=== PATIENT | female | born 1970 | race Caucasian/White ===

== ENCOUNTER 2017-05-25 13:04 | Emergency (ER) | payer MEDICAID, OTHER ==
--- NOTE | 2017-05-25 13:38 | EDM.PDOC ---
ED HPI GENERAL MEDICAL PROBLEM - General Chief Complaint: Respiratory Problem Stated Complaint: SICK X 4 DAYS Time Seen by Provider: 05/25/17 13:15 Source of Information: Reports: Patient, RN, RN Notes Reviewed History Limitations: Reports: No Limitations - History of Present Illness INITIAL COMMENTS - FREE TEXT/NARRATIVE: C/O 3 days duration of sore throat with subjective fevers, generalized body aches, and cough. Denies abd. pain, rash, or urinary Sx's. Admits to vomiting x2 on the first day of the illness, but no nausea today. Pt's co-worker was ill with similar Sx's last week. 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 Throat Pain Score (Numeric/FACES): 7 - Related Data Allergies Allergy/AdvReac Type Severity Reaction Status Date / Time No Known Allergies Allergy Verified 05/25/17 13:16 Home Meds: Home Meds Insulin Glarg,Human.Rec.Analog [Lantus Solostar] 30 units SQ BEDTIME 05/25/17 [ History] Lisinopril 5 mg PO DAILY 05/25/17 [History] Simvastatin 20 mg PO BEDTIME 05/25/17 [History] Past Medical History HEENT History: Reports: None Cardiovascular History: Reports: High Cholesterol, Hypertension Respiratory History: Reports: None Gastrointestinal History: Reports: None Genitourinary History: Reports: None 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 Musculoskeletal History: Reports: None Neurological History: Reports: None Psychiatric History: Reports: None Endocrine/Metabolic History: Reports: Diabetes, Type II, IDDM Hematologic History: Reports: None Immunologic History: Reports: None Oncologic (Cancer) History: Reports: None Dermatologic History: Reports: None - Infectious Disease History Infectious Disease History: Reports: Chicken Pox - Past Surgical History Head Surgeries/Procedures: Reports: None HEENT Surgical History: Reports: Adenoidectomy, Cataract Surgery, Tonsillectomy Female Surgical History: Reports: Section Social & Family History - Family History Family Medical History: Noncontributory - Tobacco Use Smoking Status *Q: Never Smoker Second Hand Smoke Exposure: No - Caffeine Use Caffeine Use: Reports: Coffee, Soda - Recreational Drug Use Recreational Drug Use: No - Living Situation & Occupation Living situation: Reports: with Family ED ROS GENERAL - Review of Systems Review Of Systems: ROS reveals no pertinent complaints other than HPI. ED EXAM, GENERAL - Physical Exam Exam: See Below Exam Limited By: No Limitations General Appearance: Alert, WD/WN, No Apparent Distress, Other (acutely ill but non-toxic appearing) Eye Exam: Bilateral Eye: Normal Inspection Ears: Normal External Exam, Normal Canal, Hearing Grossly Normal, Normal TMs Nose: No Blood, Nasal Drainage (clear) Throat/Mouth: Normal Inspection, Normal Lips, Normal Teeth, Normal Gums, Normal Oropharynx, Normal Voice, No Airway Compromise Head: Atraumatic, Normocephalic Neck: Normal Inspection, Supple, Non-Tender, Full Range of Motion. No: Lymphadenopathy (L), Lymphadenopathy (R) Respiratory/Chest: No Respiratory Distress, No Accessory Muscle Use, Decreased Breath Sounds, Other (occ. dry cough). No: Rales, Rhonchi, Wheezing Cardiovascular: Regular Rate, Rhythm, No Edema, Tachycardia GI/Abdominal: Normal Bowel Sounds, Soft, Non-Tender, No Distention. No: Guarding, Rigid, Rebound (Female) Exam: Deferred Rectal (Female) Exam: Deferred Back Exam: Normal Inspection, Full Range of Motion. No: CVA Tenderness (L), CVA Tenderness (R) Extremities: Normal Inspection, Normal Range of Motion, Non-Tender, Normal Capillary Refill, No Pedal Edema Neurological: Alert, Oriented, CN II-XII Intact, Normal Cognition, Normal Gait, No Motor/Sensory Deficits Psychiatric: Normal Mood Skin Exam: Warm, Dry, Intact, Normal Color, No Rash EKG INTERPRETATION EKG Date: 05/25/17 Time: 14:14 Rhythm: Other (sinus tach) Rate (Beats/Min): 104 [place]: Normal P-Wave: Present QRS: Normal ST-T: Normal QT: Normal Comparison: NA - No Prior EKG Course - Vital Signs Last Recorded V/S: Last Vital Signs Temp 37.7 C 05/25/17 15:10 Pulse 105 H 05/25/17 15:10 Resp 16 05/25/17 15:10 BP 160/88 H 05/25/17 15:10 Pulse Ox 100 05/25/17 15:10 - Orders/Labs/Meds Orders: Active Orders 24 hr Category Date Time Status EKG 12 Lead [EKG Documentation Completion] [RC] STAT Care 05/25/17 13:49 Active Peripheral IV Care [RC] . DIRECTED Care 05/25/17 13:49 Active Chest 2V [CR] Stat Exams 05/25/17 13:49 Taken CULTURE STREP A CONFIRMATION [] Stat Lab 05/25/17 13:25 Results STREP SCRN A RAPID W CULT CONF [] Stat Lab 05/25/17 13:25 Results Sodium Chloride 0.9% [Saline Flush] Med 05/25/17 13:48 Active 10 ml FLUSH ASDIRECTED PRN Peripheral IV Insertion Adult [OM.PC] Stat Oth 05/25/17 13:48 Ordered Medication Orders Sodium Chloride (Saline Flush) 10 ml FLUSH ASDIRECTED PRN PRN Reason: Keep Vein Open Last Admin: 05/25/17 14:09 Dose: 10 ml Labs: Laboratory Tests 05/25/17 05/25/17 05/25/17 Range/Units 14:09 14:09 15:00 WBC 5.3 (5.0-10.0) 10^3/uL RBC 4.51 (4.2-5.4) 10^6/uL Hgb 14.4 (12.0-16.0) g/dL Hct 41.4 (37.0-47.0) % MCV 91.8 (80-100) fL MCH 31.9 (27.0-34.0) pg MCHC 34.8 (33.0-35.0) g/dL Plt Count 155 (150-450) 10^3/uL Neut % (Auto) 71.9 (42.2-75.2) % Lymph % (Auto) 16.1 L (20.5-50.1) % [place] % (Auto) 11.4 H (2-8) % Eos % (Auto) 0.2 L (1.0-3.0) % Baso % (Auto) 0.4 (0.0-1.0) % ABG pH 7.42 (7.35-7.45) ABG pCO2 24 L (35-45) mmHg ABG pO2 73 (70-100) mmHg ABG HCO3 15.6 L (22-26) mmol/L ABG O2 Saturation 97 (95-100) % ABG Base Excess -7 L ((-2)-(+3)) mmol/L Lee Test rb O2 Delivery Device Room air Sodium 132 L (135-145) mmol/L Potassium 4.1 (3.6-5.0) mmol/L Chloride 102 (101-111) mmol/L Carbon Dioxide 20.0 L (21.0-31.0) mmol/L Anion Gap 14.1 BUN 19 H (7-18) mg/dL Creatinine 0.8 (0.6-1.3) mg/dL Est Cr Clr Drug Dosing 75.88 mL/min Estimated GFR (MDRD) > 60 BUN/Creatinine Ratio 23.75 Glucose 268 H (74-105) mg/dL Calcium 8.9 (8.4-10.2) mg/dl Total Bilirubin 0.7 (0.2-1.0) mg/dL AST 20 (10-42) IU/L ALT 15 (10-60) IU/L Alkaline Phosphatase 66 (42-121) IU/L Total Protein 6.9 (6.7-8.2) g/dl Albumin 3.8 (3.2-5.5) g/dl Globulin 3.1 Albumin/Globulin Ratio 1.23 Ketones Positive Rapid Strep: negative Influenza A: negative Influenza B: POSITIVE Meds: Medications Generic Name Dose Route Start Last Admin Trade Name Freq PRN Reason Stop Dose Admin Sodium Chloride 10 ml 05/25/17 13:48 05/25/17 14:09 Saline Flush FLUSH 10 ml ASDIRECTED PRN Administration Keep Vein Open Discontinued Medications Generic Name Dose Route Start Last Admin Trade Name Freq PRN Reason Stop Dose Admin Sodium Chloride 1,000 mls @ 999 mls/hr 05/25/17 13:50 05/25/17 14:09 Normal Saline IV 05/25/17 14:50 999 mls/hr .BOLUS ONE Administration - Radiology Interpretation Free Text/Narrative:: CXR: no acute process, see Rad. report. Departure - Departure Time of Disposition: 15:28 Disposition: Home, Self-Care 01 Condition: Fair Clinical Impression: Influenza B, Diabetic ketosis - Discharge Information Instructions: Influenza, Adult, Diabetes Mellitus and Sick Day Management Forms: ED Department Discharge Additional Instructions: Drink plenty of water. Monitor your blood sugar closely. Use over the counter Tylenol or Ibuprofen as needed for fevers. Follow directions on bottle for dosing and precautions. Follow up in clinic with your primary doctor tomorrow or May 29 for recheck. Return to ER if worse at any time, or if any new symptoms develop. - My Orders Last 24 Hours: My Active Orders 05/25/17 13:25 CULTURE STREP A CONFIRMATION [RM] Stat STREP SCRN A RAPID W CULT CONF [RM] Stat 05/25/17 13:48 Sodium Chloride 0.9% [Saline Flush] 10 ml FLUSH ASDIRECTED PRN Peripheral IV Insertion Adult [OM.PC] Stat 05/25/17 13:49 EKG 12 Lead [EKG Documentation Completion] [RC] STAT Peripheral IV Care [RC] . DIRECTED Chest 2V [CR] Stat - Assessment/Plan Last 24 Hours: My Active Orders 05/25/17 13:25 CULTURE STREP A CONFIRMATION [RM] Stat STREP SCRN A RAPID W CULT CONF [RM] Stat 05/25/17 13:48 Sodium Chloride 0.9% [Saline Flush] 10 ml FLUSH ASDIRECTED PRN Peripheral IV Insertion Adult [OM.PC] Stat 05/25/17 13:49 EKG 12 Lead [EKG Documentation Completion] [RC] STAT Peripheral IV Care [RC] . DIRECTED Chest 2V [CR] Stat
[2017-05-25] MEDS ORDERED: Sodium Chloride 0.9% 10 ML Syringe FLUSH PRN (13:48)
[2017-05-25] MEDS ORDERED: Sodium Chloride 0.9% 1,000 ML IV ONE (13:50)
[2017-05-25 14:36] LABS: CHLORIDE,CL 102 mmol/L (101-111); SODIUM,NA 132 mmol/L (135-145)
[2017-05-25 15:13] LABS: BASE EXCESS ARTERIAL -7 mmol/L ((-2)-(+3)); BICARBONATE,ARTERIAL 15.6 mmol/L (22-26); O2 DELIVERY DEVICE ROOM AIR; O2 SATURATION ARTERIAL 97 % (95-100); PCO2 ARTERIAL 24 mmHg (35-45); PO2 ARTERIAL 73 mmHg (70-100)
[2017-05-25 15:15] LABS: ALLEN TEST rb
--- NOTE | 2017-05-25 15:29 | CR ---
CLINICAL HISTORY: 47-year-old female with fever and cough. INTERPRETATION: Coarse accentuation central lung markings, mild peribronchial "cuffing" and generaliz ed air trapping consistent with bronchial inflammation/bronchospasm. Clinical bronchitis? No focal lobar pneumonia and no sign of atelectasis/collapse. No pneumothorax. Normal cardiac silhouette without cephalization of flow, signs of alveolar edema or dependent pleural effusion. No lung mass or hilar lymphadenopathy. CONCLUSION: Bronchial inflammation. No lobar pneumonia.
--- NOTE | 2017-05-29 09:30 | EKG ---
05/25/2017 - [place]LIN[facility] - EKG is sinus rhythm with a rate of 132, normal IL interval, normal axis. EKG is within normal limits. [facility] /[id number]
== END 2017-05-25 15:46 | disposition home or self-care (01) ==
LOC: DL.ED 13:04
DX: J10.1 Influenza due to other identified influenza virus with other respiratory manifestations (principal); E11.10 Type 2 diabetes mellitus with ketoacidosis without coma; I10 Essential (primary) hypertension; Z79.4 Long term (current) use of insulin; Z79.899 Other long term (current) drug therapy
CPT/HCPCS: 36415; 36600; 71046; 80053; 82009; 82803; 85025; 87081; 87430; 87804; 93005; 96360; 99284; J7030; J7050

== ENCOUNTER 2020-06-06 14:21 | Emergency (ER) | payer MEDICAID ==
[2020-06-06] MEDS ORDERED: Meclizine 12.5 MG Tab PO ONE (14:22)
[2020-06-06] MEDS ORDERED: Lactated Ringers 1,000 ML IV ONE (16:14)
[2020-06-06 17:28] LABS: ANION GAP 10.9 mEq/L (7-13); CHLORIDE,CL 102 mmol/L (98-107); SODIUM,NA 139 mmol/L (136-145)
[2020-06-06] MEDS ORDERED: Magnesium Sulfate/Water 2 GM/50 ML BAG IV ONE (17:52)
--- NOTE | 2020-06-06 18:40 | CT ---
PROCEDURE INFORMATION: Exam: CT Head Without Contrast Exam date and time: 06/06/2020 6:13 PM Age: 50 years old Clinical indication: Dizziness TECHNIQUE: Imaging protocol: Computed tomography of the head without contrast. Total images: 148 Radiation optimization: All CT scans at this facility use at least one of these dose optimization techniques: automated exposure control; mA and/or kV adjustment per patient size (includes targeted exams where dose is matched to clinical indication); or iterative reconstruction. COMPARISON: No relevant prior studies available. FINDINGS: Brain: Normal. No hemorrhage. Unremarkable white matter. No mass effect. Cerebral ventricles: No ventriculomegaly. Bones/joints: Unremarkable. No acute fracture. Paranasal sinuses: Visualized sinuses are unremarkable. No fluid levels. Mastoid air cells: Visualized mastoid air cells are well aerated. Soft tissues: Unremarkable. IMPRESSION: No acute intracranial abnormality.
--- NOTE | 2020-06-06 18:49 | EDM.PDOC ---
Scribed by Louisa Lowe 06/06/20 [id number] for Raissa Nguyen NP ED HPI GENERAL MEDICAL PROBLEM - General Chief Complaint: General Stated Complaint: DIZZY Time Seen by Provider: 06/06/20 16:05 Source of Information: Reports: Patient, RN, RN Notes Reviewed History Limitations: Reports: No Limitations - History of Present Illness INITIAL COMMENTS - FREE TEXT/NARRATIVE: Patient is a 50-year-old female who presents to ER with complaint of dizziness since Monday. Patient states it feels as though the room is spinning. Patient she has taken Lisinopril x5 years. She had COVID in December 2019. She has had no vaccinations. She is post-menopausal 5 years, unknown LMP. She has had chills and diarrhea that began last night. No fever, nausea, vomiting, chest pain or sh ortness of breath. Onset: Gradual Duration: Constant Location: Reports: Head Quality: Reports: Other (dizziness) Severity: Moderate Improves with: Reports: None Worsens with: Reports: None Associated Symptoms: Reports: No Other Symptoms - Related Data Allergies Allergy/AdvReac Type Severity Reaction Status Date / Time No Known Allergies Allergy Verified 06/06/20 15:11 Home Meds: Home Meds Insulin Glarg,Human.Rec.Analog [Lantus Solostar] 30 units SQ BEDTIME 05/25/17 [History] Lisinopril 5 mg PO DAILY 05/25/17 [History] Simvastatin 20 mg PO BEDTIME 05/25/17 [History] Alendronate Sodium [Fosamax] 70 mg PO .WEEKLY 03/31/20 [History] Insulin Lispro [Humalog] 10 units SQ TID 03/31/20 [History] metFORMIN HCl [Metformin HCl] 500 mg PO BID 03/31/20 [History] Calcium Carbonate [Calcium] 600 mg PO BID 04/17/20 [History] Cholecalciferol (Vitamin D3) [Vitamin D3] 2,000 unit PO DAILY 04/17/20 [History] Past Medical History HEENT History: Reports: None Cardiovascular History: Reports: High Cholesterol, Hypertension Respiratory History: Reports: None Gastrointestinal History: Reports: None Genitourinary History: Reports: None 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 Musculoskeletal History: Reports: None Neurological History: Reports: None Psychiatric History: Reports: None Endocrine/Metabolic History: Reports: Diabetes, Type II, IDDM Hematologic History: Reports: None Immunologic History: Reports: None Oncologic (Cancer) History: Reports: None Dermatologic History: Reports: None - Infectious Disease History Infectious Disease History: Reports: Chicken Pox - Past Surgical History Head Surgeries/Procedures: Reports: None HEENT Surgical History: Reports: Adenoidectomy, Cataract Surgery, Tonsillectomy Female Surgical History: Reports: Section Social & Family History - Family History Family Medical History: No Pertinent Family History - Tobacco Use Tobacco Use Status *Q: Never Tobacco User - Caffeine Use Caffeine Use: Reports: Coffee, Soda - Recreational Drug Use Recreational Drug Use: No - Living Situation & Occupation Living situation: Reports: with Family ED ROS GENERAL - Review of Systems Review Of Systems: Comprehensive ROS is negative, except as noted in HPI. ED EXAM, GENERAL - Physical Exam Exam: See Below Exam Limited By: No Limitations General Appearance: Alert, WD/WN, No Apparent Distress Eye Exam: Bilateral Eye: EOMI, Normal Inspection, PERRL Ears: Normal External Exam, Normal Canal, Hearing Grossly Normal, Normal TMs Nose: Normal Inspection, Normal Mucosa, No Blood Throat/Mouth: Normal Inspection, Normal Lips, Normal Teeth, Normal Gums, Normal Oropharynx, Normal Voice, No Airway Compromise Head: Atraumatic, Normocephalic Neck: Normal Inspection, Supple, Non-Tender, Full Range of Motion Respiratory/Chest: No Respiratory Distress, Lungs Clear, Normal Breath Sounds, No Accessory Muscle Use, Chest Non-Tender Cardiovascular: Normal Peripheral Pulses, Regular Rate, Rhythm, No Edema, No Gallop, No JVD, No Murmur, No Rub GI/Abdominal: Normal Bowel Sounds, Soft, Non-Tender, No Organomegaly, No Distention, No Abnormal Bruit, No Mass (Female) Exam: Deferred Rectal (Female) Exam: Deferred Back Exam: Normal Inspection, Full Range of Motion, NT Extremities: Normal Inspection, Normal Range of Motion, Non-Tender, Normal Capillary Refill, No Pedal Edema Neurological: Alert, Oriented, CN II-XII Intact, Normal Cognition, Normal Gait, Normal Reflexes, No Motor/Sensory Deficits Psychiatric: Normal Affect, Normal Mood Skin Exam: Warm, Dry, Intact, Normal Color, No Rash Lymphatic: No Adenopathy #1 Interpretation EKG Date: 06/06/20 Time: 16:35 Rhythm: Other (sinus rhythm) Rate (Beats/Min): 87 [place]: Normal P-Wave: Present QRS: Normal ST-T: Normal QT: Normal Course - Vital Signs Last Recorded V/S: Last Vital Signs Temp 97.4 F 06/06/20 18:03 Pulse 88 06/06/20 18:03 Resp 16 06/06/20 18:03 BP 114/73 06/06/20 18:03 Pulse Ox 98 06/06/20 18:03 - Orders/Labs/Meds Labs: Laboratory Tests 06/06/20 06/06/20 06/06/20 Range/Units 16:30 16:45 16:45 WBC 8.4 (5.0-10.0) 10^3/uL RBC 4.29 (4.2-5.4) 10^6/uL Hgb 13.7 (12.0-16.0) g/dL Hct 41.2 (37.0-47.0) % MCV 96.0 D (80-100) fL MCH 31.9 (27.0-34.0) pg MCHC 33.3 (33.0-35.0) g/dL Plt Count 220 (150-450) 10^3/uL Neut % (Auto) 65.9 (42.2-75.2) % Lymph % (Auto) 24.5 (20.5-50.1) % [place] % (Auto) 8.4 H (2-8) % Eos % (Auto) 0.7 L (1.0-3.0) % Baso % (Auto) 0.5 (0.0-1.0) % Sodium 139 (136-145) mmol/L Potassium 3.9 (3.5-5.1) mmol/L Chloride 102 (98-107) mmol/L Carbon Dioxide 30 (21-32) mmol/L Anion Gap 10.9 (7-13) mEq/L BUN 26 H (7-18) mg/dL Creatinine 0.94 (0.55-1.02) mg/dL Est Cr Clr Drug Dosing 62.51 mL/min Estimated GFR (MDRD) > 60 BUN/Creatinine Ratio 27.7 (No establ ref range) Glucose 238 H (70-99) mg/dL POC Glucose (70-99) mg/dL Calcium 9.9 (8.5-10.1) mg/dL Magnesium 1.6 L (1.8-2.4) mg/dL Total Bilirubin 0.3 (0.2-1.0) mg/dL AST 17 (15-37) U/L ALT 27 (14-59) U/L Alkaline Phosphatase 71 (46-116) U/L Troponin I < 0.017 (0.000-0.056) ng/mL Total Protein 7.0 (6.4-8.2) g/dL Albumin 3.5 (3.4-5.0) g/dL Globulin 3.5 Albumin/Globulin Ratio 1.0 Urine Color Yellow (YELLOW) Urine Appearance Slightly cloudy (CLEAR) Urine pH 6.0 (5.0-9.0) Ur Specific Reading >= 1.030 (1.005-1.030) Urine Protein Negative (NEGATIVE) Urine Glucose (UA) 100 H (NEGATIVE) Urine Ketones Negative (NEGATIVE) Urine Occult Blood Trace-intact H (NEGATIVE) Urine Nitrite Negative (NEGATIVE) Urine Bilirubin Negative (NEGATIVE) Urine Urobilinogen 0.2 (0.2-1.0) mg/dL Ur Leukocyte Esterase Negative (NEGATIVE) Urine RBC 0-5 /HPF Urine WBC 0-5 (0-5/HPF) /HPF Ur Epithelial Cells Few (NOT SEEN) /HPF Urine Bacteria Few (0-FEW/HPF) /HPF 06/06/20 Range/Units 18:45 WBC (5.0-10.0) 10^3/uL RBC (4.2-5.4) 10^6/uL Hgb (12.0-16.0) g/dL Hct (37.0-47.0) % MCV (80-100) fL MCH (27.0-34.0) pg MCHC (33.0-35.0) g/dL Plt Count (150-450) 10^3/uL Neut % (Auto) (42.2-75.2) % Lymph % (Auto) (20.5-50.1) % [place] % (Auto) (2-8) % Eos % (Auto) (1.0-3.0) % Baso % (Auto) (0.0-1.0) % Sodium (136-145) mmol/L Potassium (3.5-5.1) mmol/L Chloride (98-107) mmol/L Carbon Dioxide (21-32) mmol/L Anion Gap (7-13) mEq/L BUN (7-18) mg/dL Creatinine (0.55-1.02) mg/dL Est Cr Clr Drug Dosing mL/min Estimated GFR (MDRD) BUN/Creatinine Ratio (No establ ref range) Glucose (70-99) mg/dL POC Glucose 146 H (70-99) mg/dL Calcium (8.5-10.1) mg/dL Magnesium (1.8-2.4) mg/dL Total Bilirubin (0.2-1.0) mg/dL AST (15-37) U/L ALT (14-59) U/L Alkaline Phosphatase (46-116) U/L Troponin I (0.000-0.056) ng/mL Total Protein (6.4-8.2) g/dL Albumin (3.4-5.0) g/dL Globulin Albumin/Globulin Ratio Urine Color (YELLOW) Urine Appearance (CLEAR) Urine pH (5.0-9.0) Ur Specific Reading (1.005-1.030) Urine Protein (NEGATIVE) Urine Glucose (UA) (NEGATIVE) Urine Ketones (NEGATIVE) Urine Occult Blood (NEGATIVE) Urine Nitrite (NEGATIVE) Urine Bilirubin (NEGATIVE) Urine Urobilinogen (0.2-1.0) mg/dL Ur Leukocyte Esterase (NEGATIVE) Urine RBC /HPF Urine WBC (0-5/HPF) /HPF Ur Epithelial Cells (NOT SEEN) /HPF Urine Bacteria (0-FEW/HPF) /HPF Meds: Medications Discontinued Medications Generic Name Dose Route Start Last Admin Trade Name Antonio PRN Reason Stop Dose Admin Lactated Ringer's 1,000 mls @ 999 mls/hr 06/06/20 16:14 06/06/20 16:39 Ringers, Lactated IV 06/06/20 17:14 999 mls/hr .BOLUS ONE Administration Magnesium Sulfate 2 gm in 50 mls @ 25 mls/hr 06/06/20 17:52 06/06/20 18:00 Magnesium Sulfate In Water 2 Gm/50 Ml IV 06/06/20 19:51 25 mls/hr ONETIME ONE Administration Meclizine HCl Confirm 06/06/20 19:15 Meclizine 12.5 Mg Tab Administered 06/06/20 19:16 Dose 25 mg .ROUTE .STK-MED ONE Meclizine HCl Confirm 06/06/20 19:16 Meclizine 12.5 Mg Tab Administered 06/06/20 19:17 Dose 25 mg .ROUTE .STK-MED ONE - Radiology Interpretation Free Text/Narrative:: Head CT wo contrast: PROCEDURE INFORMATION: Exam: CT Head Without Contrast Exam date and time: 06/06/2020 6:13 PM Age: 50 years old Clinical indication: Dizziness TECHNIQUE: Imaging protocol: Computed tomography of the head without contrast. Total images: 148 Radiation optimization: All CT scans at this facility use at least one of these dose optimization techniques: automated exposure control; mA and/or kV adjustment per patient size (includes targeted exams where dose is matched to clinical indication); or iterative reconstruction. COMPARISON: No relevant prior studies available. FINDINGS: Brain: Normal. No hemorrhage. Unremarkable white matter. No mass effect. Cerebral ventricles: No ventriculomegaly. Bones/joints: Unremarkable. No acute fracture. Paranasal sinuses: Visualized sinuses are unremarkable. No fluid levels. Mastoid air cells: Visualized mastoid air cells are well aerated. Soft tissues: Unremarkable. IMPRESSION: No acute intracranial abnormality. Thank you for allowing us to participate in the care of your patient. Dictated and Authenticated by: German Kulkarni MD 06/06/2020 6:40 PM Central Time ([place] & [place]) See rad report Departure - Departure Time of Disposition: 20:20 Disposition: Home, Self-Care 01 Condition: Fair Clinical Impression: Dizziness - Discharge Information *PRESCRIPTION DRUG MONITORING PROGRAM REVIEWED*: No *COPY OF PRESCRIPTION DRUG MONITORING REPORT IN PATIENT ZAFAR: No Instructions: Dizziness, [id number] Referrals: PCP,None [Primary Care Provider] - Forms: ED Department Discharge Additional Instructions: Follow-up with your primary care provider next week Follow-up with physical therapy for evaluation of vertigo and Delia maneuvers Rx: Meclizine 25 mg May use 4 times daily as needed for dizziness Drink plenty of fluids Sepsis Event Note (ED) - Evaluation Sepsis Screening Result: No Definite Risk I have read and agree with the documentation that has been completed regarding this visit. By signing this record, I attest that the documentation was completed in my physical presence and is an accurate record of the encounter.
[2020-06-06] MEDS ORDERED: Meclizine 12.5 MG Tab ONE ×2 (19:15→19:16)
== END 2020-06-06 20:20 | disposition home or self-care (01) ==
LOC: DL.ED 14:21
DX: R42 Dizziness and giddiness (principal); E78.00 Pure hypercholesterolemia, unspecified; I10 Essential (primary) hypertension; E11.9 Type 2 diabetes mellitus without complications; Z79.4 Long term (current) use of insulin; Z79.899 Other long term (current) drug therapy
CPT/HCPCS: 36415; 70450; 80053; 81001; 82947; 83735; 84484; 85025; 93005; 96365; 96366; 99284; J3475; J7120; 93010; A9270-GY

== ENCOUNTER 2020-08-18 13:04 | Emergency (ER) | payer MEDICAID ==
[2020-08-18] MEDS ORDERED: Ondansetron 4 MG/2 ML SDV IVPUSH ONE (14:14)
[2020-08-18] MEDS ORDERED: Sodium Chloride 0.9% 1,000 ML IV ONE (14:14)
--- NOTE | 2020-08-18 14:19 | EDM.PDOC ---
ED HPI GENERAL MEDICAL PROBLEM - General Chief Complaint: Gastrointestinal Problem Stated Complaint: STOMACH ACHE, VOMITING TWO DAYS Time Seen by Provider: 08/18/20 14:00 Source of Information: Reports: Patient, RN, RN Notes Reviewed History Limitations: Reports: No Limitations - History of Present Illness INITIAL COMMENTS - FREE TEXT/NARRATIVE: Lauren is a 50 y/o female who presents to the ED via personal vehicle with complaints of nausea, vomiting, and abdominal pain. The patient reports her symptoms began yesterday morning and have maintained in that time. She has experienced multiple bouts of emesis; her last occurrence of vomiting was about one hour prior to her arrival at the facility. She denies fever, shaking chills, shortness of breath, dyspepsia, diarrhea, or constipation. Her last bowel movement was last night and was hard, formed. Her last meal was two evenings ago. The patient denies recreational drug use but attest to alcohol use and smoking a vape pen; her last drink of alcohol was two day ago over the holiday weekend. Lower Abdominal Pain Score (Numeric/FACES): 6 - Related Data Allergies Allergy/AdvReac Type Severity Reaction Status Date / Time No Known Allergies Allergy Verified 08/18/20 13:30 Home Meds: Home Meds Insulin Glarg,Human.Rec.Analog [Lantus Solostar] 30 units SQ BEDTIME 05/25/17 [History] Lisinopril 5 mg PO DAILY 05/25/17 [History] Simvastatin 20 mg PO BEDTIME 05/25/17 [History] Alendronate Sodium [Fosamax] 70 mg PO .WEEKLY 03/31/20 [History] Insulin Lispro [Humalog] 10 units SQ TID 03/31/20 [History] metFORMIN HCl [Metformin HCl] 500 mg PO BID 03/31/20 [History] Calcium Carbonate [Calcium] 600 mg PO BID 04/17/20 [History] Cholecalciferol (Vitamin D3) [Vitamin D3] 2,000 unit PO DAILY 04/17/20 [History] Past Medical History HEENT History: Reports: None Cardiovascular History: Reports: High Cholesterol, Hypertension Respiratory History: Reports: None Gastrointestinal History: Reports: None Genitourinary History: Reports: None HR RECEPTIONIST History: Reports: None Musculoskeletal History: Reports: None Neurological History: Reports: None Psychiatric History: Reports: None Endocrine/Metabolic History: Reports: Diabetes, Type II, IDDM Hematologic History: Reports: None Immunologic History: Reports: None Oncologic (Cancer) History: Reports: None Dermatologic History: Reports: None - Infectious Disease History Infectious Disease History: Reports: Chicken Pox - Past Surgical History Head Surgeries/Procedures: Reports: None HEENT Surgical History: Reports: Adenoidectomy, Cataract Surgery, Tonsillectomy Cardiovascular Surgical History: Reports: None Respiratory Surgical History: Reports: None GI Surgical History: Reports: None Female Surgical History: Reports: Section Endocrine Surgical History: Reports: None Neurological Surgical History: Reports: None Musculoskeletal Surgical History: Reports: None Oncologic Surgical History: Reports: None Dermatological Surgical History: Reports: Other (See Below) Social & Family History - Family History Family Medical History: No Pertinent Family History - Tobacco Use Tobacco Use Status *Q: Current Every Day Tobacco User Years of Tobacco use: 20 Packs/Tins Daily: 0.2 - Caffeine Use Caffeine Use: Reports: Coffee, Soda Other Caffeine Use: 3-4 TIMES A WEEK - Recreational Drug Use Recreational Drug Use: No - Living Situation & Occupation Living situation: Reports: with Family ED ROS GENERAL - Review of Systems Review Of Systems: Comprehensive ROS is negative, except as noted in HPI. ED EXAM, GI/ABD - Physical Exam Exam: See Below Exam Limited By: No Limitations General Appearance: Alert, No Apparent Distress, Other (Ill-appearing) Eyes: Bilateral: Normal Appearance, EOMI Ears: Normal External Exam, Hearing Grossly Normal Nose: Normal Inspection, Normal Mucosa, No Blood Throat/Mouth: Normal Voice, No Airway Compromise. No: Normal Oropharynx (Dry mucous membranes) Head: Atraumatic, Normocephalic Neck: Normal Inspection, Supple, Non-Tender, Full Range of Motion Respiratory/Chest: No Respiratory Distress, Lungs Clear, Normal Breath Sounds, No Accessory Muscle Use, Chest Non-Tender Cardiovascular: Normal Peripheral Pulses, Regular Rate, Rhythm, No Gallop, No JVD, No Murmur, No Rub. No: No Edema GI/Abdominal Exam: Soft, No Distention, No Abnormal Bruit, No Mass, Pelvis Stable, Tender (To palpation of bilateral lower quadrants and left upper quadrant), Abnormal Bowel Sounds (Hypoactive bowel sounds) (Female) Exam: Deferred Rectal (Female) Exam: Deferred Back Exam: Normal Inspection, Full Range of Motion. No: CVA Tenderness (L), CVA Tenderness (R) Extremities: Normal Inspection, Normal Range of Motion, Non-Tender, Normal Capillary Refill, Pedal Edema (Trace, pitting bilaterally) Neurological: Alert, Oriented, CN II-XII Intact, Normal Cognition, Normal Gait, Normal Reflexes, No Motor/Sensory Deficits Psychiatric: Normal Affect, Normal Mood Skin Exam: Warm, Dry, Intact, Normal Color, No Rash. No: Cyanosis, Ecchymosis, Erythema, Jaundice, Mottled, Pallor Course - Vital Signs Last Recorded V/S: Last Vital Signs Temp 97.7 F 08/18/20 13:30 Pulse 101 H 08/18/20 13:30 Resp 18 08/18/20 13:30 BP 126/84 08/18/20 13:30 Pulse Ox 99 08/18/20 13:30 - Orders/Labs/Meds Orders: Active Orders 24 hr Category Date Time Status UA RFX OSCAR AND CULT IF INDIC [URIN] Stat Lab 08/18/20 14:13 Ordered Labs: Laboratory Tests 08/18/20 08/18/20 08/18/20 Range/Units 14:21 14:21 14:21 WBC 17.5 H (5.0-10.0) 10^3/uL RBC 4.28 (4.2-5.4) 10^6/uL Hgb 13.9 (12.0-16.0) g/dL Hct 41.5 (37.0-47.0) % MCV 97.0 (80-100) fL MCH 32.5 (27.0-34.0) pg MCHC 33.5 (33.0-35.0) g/dL Plt Count 199 (150-450) 10^3/uL Neut % (Auto) 86.2 H (42.2-75.2) % Lymph % (Auto) 7.4 L (20.5-50.1) % Campbell % (Auto) 6.0 (2-8) % Eos % (Auto) 0.2 L (1.0-3.0) % Baso % (Auto) 0.2 (0.0-1.0) % Sodium 136 (136-145) mmol/L Potassium 4.6 (3.5-5.1) mmol/L Chloride 100 (98-107) mmol/L Carbon Dioxide 25 (21-32) mmol/L Anion Gap 15.6 H (7-13) mEq/L BUN 28 H (7-18) mg/dL Creatinine 0.98 (0.55-1.02) mg/dL Est Cr Clr Drug Dosing 59.96 mL/min Estimated GFR (MDRD) > 60 BUN/Creatinine Ratio 28.6 (No establ ref range) Glucose 233 H (70-99) mg/dL Lactic Acid 1.9 (0.4-2.0) mmol/L Calcium 9.0 (8.5-10.1) mg/dL Total Bilirubin 0.7 (0.2-1.0) mg/dL AST 11 L (15-37) U/L ALT 17 (14-59) U/L Alkaline Phosphatase 82 (46-116) U/L Total Protein 7.3 (6.4-8.2) g/dL Albumin 3.4 (3.4-5.0) g/dL Globulin 3.9 Albumin/Globulin Ratio 0.9 HCG, Qual Negative Meds: Medications Discontinued Medications Generic Name Dose Route Start Last Admin Trade Name Freq PRN Reason Stop Dose Admin Sodium Chloride 1,000 mls @ 999 mls/hr 08/18/20 14:14 08/18/20 14:36 Normal Saline IV 08/18/20 15:14 999 mls/hr .BOLUS ONE Administration Ciprofloxacin/Dextrose 400 mg/ 200 mls @ 200 mls/hr 08/18/20 16:07 08/18/20 16:40 Premix IV 08/18/20 17:06 200 mls/hr ONETIME ONE Administration Metronidazole 500 mg/ Premix 100 mls @ 100 mls/hr 08/18/20 16:07 08/18/20 16:30 IV 08/18/20 17:06 100 mls/hr ONETIME ONE Administration Iopamidol 100 ml 08/18/20 15:13 Iopamidol 612 Mg/Ml 100 Ml Bottle IVPUSH 08/18/20 15:14 ONETIME ONE Ondansetron HCl 4 mg 08/18/20 14:14 08/18/20 14:36 Ondansetron 4 Mg/2 Ml Sdv IVPUSH 08/18/20 14:15 4 mg ONETIME ONE Administration - Re-Assessments/Exams Free Text/Narrative Re-Assessment/Exam: 08/18/20 NS 1L bolus and Zofran 4mg IVP administered while labs pending. Will obtain CT abdomen/pelvis, creatinine pending. Findings of examination, lab work, and imaging reviewed with patient. Will treat diverticulitis with Ciprofloxacin and Metronidazole. Discussed supportive cares for abdominal pain associated with diverticulitis. Red flag signs and symptoms which would warrant reevaluation reviewed. Patient verbalized understanding and agreement with the plan of care. Departure - Departure Time of Disposition: 17:52 Disposition: Home, Self-Care 01 Condition: Fair Clinical Impression: Diverticulitis Hyperglycemia due to type 2 diabetes mellitus Qualifiers: Diabetes mellitus mold washer insulin use: without halfway use Qualified Code(s): E11.65 - Type 2 diabetes mellitus with hyperglycemia - Discharge Information *PRESCRIPTION DRUG MONITORING PROGRAM REVIEWED*: Not Applicable *COPY OF PRESCRIPTION DRUG MONITORING REPORT IN PATIENT ZAFAR: Not Applicable Instructions: Diverticulitis, [id number] Forms: ED Department Discharge Additional Instructions: Rx: ciprofloxacin Rx: metronidazole 1.) Take all of your antibiotics until they are gone. 2.) Drink plenty of water to stay hydrated. 3.) Eat a bland diet while you continue to experience abdominal pain. Avoid spicy, greasy, high-fat foods. 4.) Monitor your blood sugar closely. 5.) Follow up with your primary care provider, or return to the emergency department, with fever, shaking chills, or persistent/worsening symptoms despite 48 hours of antibiotics. Sepsis Event Note (ED) - Evaluation Sepsis Screening Result: No Definite Risk - Focused Exam Vital Signs: Vital Signs Temp Pulse Resp BP Pulse Ox 08/18/20 13:30 97.7 F 101 H 18 126/84 99 - My Orders Last 24 Hours: My Active Orders 08/18/20 14:13 UA RFX OSCAR AND CULT IF INDIC [URIN] Stat - Assessment/Plan Last 24 Hours: My Active Orders 08/18/20 14:13 UA RFX OSCAR AND CULT IF INDIC [URIN] Stat
[2020-08-18 14:47] LABS: ANION GAP 15.6 mEq/L (7-13); CHLORIDE,CL 100 mmol/L (98-107); SODIUM,NA 136 mmol/L (136-145)
[2020-08-18] MEDS ORDERED: Iopamidol 612 MG/ML 100 ML Bottle IVPUSH ONE (15:13)
[2020-08-18] MEDS ORDERED: metroNIDAZOLE/Normal Saline 500 MG in Premix Bag 100 BAG IV ONE (16:07)
[2020-08-18] MEDS ORDERED: Ciprofloxacin in D5W 400 MG in Premix Bag 1 BAG IV ONE ×2 (16:07)
--- NOTE | 2020-08-18 16:37 | CT ---
EXAMINATION: Abdomen Pelvis w Cont SEX: Female AGE: 50 years CLINICAL HISTORY: 50-year-old diabetic female complaining of lower abdomen pain (L>R); WBC 17,000. HISTORY: Polyps removed end of June 2020. Scan technique: Volume acquisition of data abdomen and pelvis obtained without oral contrast but during the intravenous infusion 75 cc nonionic Isovue contrast 3 cc/s via injector while patient was lying supine on the Siemens multislice scanner [place], [place]. All data archived in the PACS system for storage, reformatting axial/sagittal/coronal planes and study. Interpretation: Abnormal. 1. Several small diverticula sigmoid colon with surrounding inflammatory "dirty" peritoneal fat suggesting perforation i.e. DIVERTICULITIS. 2. Solitary tiny parenchymal cyst right lobe of the liver. Gallbladder, liver, stomach, spleen, pancreas and adrenal glands otherwise unremarkable i.e. negative. 3. Oval metallic density foreign body right lower quadrant (cecum). 4. Solitary round calcification lower pole right kidney. No sign of other renal calculi, renal cortical mass or obstruction. 5. 3 cm diameter cystic structure right adnexa which may represent ovarian cyst however bladder diverticulum or sigmoid colon filled with fluid in the differential (small nodule and suggest considering pelvic ultrasound as elective procedure). 6. No other pelvic or abdominal mass lesion. No sign of mechanical bowel obstruction, ascites or free intraperitoneal air. 7. Lung bases clear. Normal cardiac silhouette. No pericardial or pleural effusions. CONCLUSION: DIVERTICULITIS LLQ abdomen. Nephrolithiasis right kidney (without obstruction). Foreign body RLQ. Pelvic ultrasound suggested after acute management diverticulitis (see above).
== END 2020-08-18 17:55 | disposition home or self-care (01) ==
LOC: DL.ED 13:04
DX: K57.32 Diverticulitis of large intestine without perforation or abscess without bleeding (principal); E11.65 Type 2 diabetes mellitus with hyperglycemia; E78.00 Pure hypercholesterolemia, unspecified; I10 Essential (primary) hypertension; Z72.0 Tobacco use; Z79.4 Long term (current) use of insulin; Z79.899 Other long term (current) drug therapy
CPT/HCPCS: 36415; 74177; 80053; 83605; 84703; 85025; 96365; 96368; 96375; 99284; J0744; J2405; J3490; J7030; Q9967; 99283

== ENCOUNTER 2020-10-25 15:59 | Emergency (ER) | payer MEDICAID ==
[~2020-10-25 15:59] MED LIST: 50% Dextrose in Water 50 ML Syringe IVPUSH ONE
[2020-10-25] MEDS ORDERED: Sodium Chloride 0.9% 10 ML Syringe FLUSH PRN (16:02)
[2020-10-25] MEDS ORDERED: Sodium Chloride 0.9% 1,000 ML IV ONE (16:03)
--- NOTE | 2020-10-25 16:05 | EDM.PDOC ---
ED HPI GENERAL MEDICAL PROBLEM - General Source of Information: Reports: Patient, EMS History Limitations: Reports: No Limitations - General Chief Complaint: Neurological Problem Stated Complaint: AMBULANCE Time Seen by Provider: 10/25/20 16:04 - History of Present Illness INITIAL COMMENTS - FREE TEXT/NARRATIVE: Patient is a 50 year old female with a past medical history significant for insulin dependent diabetes who was brought to the emergency department by EMS for evaluation of altered mental status. Patient reportedly went out drinking last night and had around 5 or 6 glasses of vodka. When she returned home, she ended up on the floor where she remained until around 0300 today when family called EMS. Patient had reportedly taken half of an edible which she believes to be marijuanna last night but otherwise denies other recreational drug use. She states that she last used her 30 units of insluin lantus on monday night. She had been using her meal time insulin (10 units) yesterday. She does not check her blood sugars very frequently. Upon initial evaluation by EMS, blood sugar was found to be 30. They started D10 resulting in improvement in blood sugar and mental status. (Mart De Paz) - Related Data Allergies Allergy/AdvReac Type Severity Reaction Status Date / Time No Known Allergies Allergy Verified 10/25/20 16:10 Home Meds: Home Meds Insulin Glarg,Human.Rec.Analog [Lantus Solostar] 30 units SQ BEDTIME 05/25/17 [History] Lisinopril 5 mg PO DAILY 05/25/17 [History] Simvastatin 20 mg PO BEDTIME 05/25/17 [History] Alendronate Sodium [Fosamax] 70 mg PO .WEEKLY 03/31/20 [History] Insulin Lispro [Humalog] 10 units SQ TID 03/31/20 [History] metFORMIN HCl [Metformin HCl] 500 mg PO BID 03/31/20 [History] Calcium Carbonate [Calcium] 600 mg PO BID 04/17/20 [History] Cholecalciferol (Vitamin D3) [Vitamin D3] 2,000 unit PO DAILY 04/17/20 [History] Past Medical History HEENT History: Reports: None Cardiovascular History: Reports: High Cholesterol, Hypertension Respiratory History: Reports: None Gastrointestinal History: Reports: None Genitourinary History: Reports: None JUNIOR QA ANALYST History: Reports: None Musculoskeletal History: Reports: None Neurological History: Reports: None Psychiatric History: Reports: None Endocrine/Metabolic History: Reports: Diabetes, Type II, IDDM Hematologic History: Reports: None Immunologic History: Reports: None Oncologic (Cancer) History: Reports: None Dermatologic History: Reports: None - Infectious Disease History Infectious Disease History: Reports: Chicken Pox - Past Surgical History Head Surgeries/Procedures: Reports: None HEENT Surgical History: Reports: Adenoidectomy, Cataract Surgery, Tonsillectomy Cardiovascular Surgical History: Reports: None Respiratory Surgical History: Reports: None GI Surgical History: Reports: None Female Surgical History: Reports: Section Endocrine Surgical History: Reports: None Neurological Surgical History: Reports: None Musculoskeletal Surgical History: Reports: None Oncologic Surgical History: Reports: None Dermatological Surgical History: Reports: Other (See Below) Social & Family History - Family History Family Medical History: No Pertinent Family History - Caffeine Use Caffeine Use: Reports: Coffee, Soda Other Caffeine Use: 3-4 TIMES A WEEK - Living Situation & Occupation Living situation: Reports: with Family ED ROS GENERAL - Review of Systems Review Of Systems: See Below Constitutional: Reports: Weakness, Fatigue. Denies: Fever, Chills HEENT: Reports: No Symptoms Respiratory: Reports: No Symptoms Cardiovascular: Reports: No Symptoms Endocrine: Reports: Fatigue, Low Glucose GI/Abdominal: Reports: No Symptoms : Reports: No Symptoms Musculoskeletal: Reports: No Symptoms Skin: Reports: No Symptoms Neurological: Reports: No Symptoms, Headache Psychiatric: Reports: No Symptoms Hematologic/Lymphatic: Reports: No Symptoms Immunologic: Reports: No Symptoms - Physical Exam Exam: See Below Exam Limited By: No Limitations General Appearance: Alert, No Apparent Distress Eye Exam: Bilateral Eye: PERRL Ears: Normal External Exam Nose: Normal Inspection, Normal Mucosa, No Blood Throat/Mouth: Normal Inspection, Normal Lips, Normal Teeth Head Exam: Atraumatic, Normocephalic Neck: Normal Inspection, Supple, Non-Tender Respiratory/Chest: No Respiratory Distress, Lungs Clear, Normal Breath Sounds Cardiovascular: Normal Peripheral Pulses, Regular Rate, Rhythm, No Gallop, No Murmur, No Rub GI/Abdominal: Normal Bowel Sounds, Soft, Non-Tender (Female) Exam: Normal External Exam, Deferred Rectal (Female) Exam: Deferred Neuro Exam (Abbreviated): Alert, Oriented, Normal Cognition, Normal Gait Back Exam: Normal Inspection Extremities: Normal Inspection Psychiatric: Normal Affect, Normal Mood Skin Exam: Warm, Dry #1 Interpretation Rhythm: NSR Lasara: Normal P-Wave: Present QRS: Normal ST-T: Normal QT: Normal Course - Vital Signs Last Recorded V/S: Last Vital Signs Temp 97.1 F 10/25/20 16:11 Pulse 110 H 10/25/20 16:11 Resp 20 10/25/20 16:11 BP 142/79 H 10/25/20 16:11 Pulse Ox 100 10/25/20 16:11 - Orders/Labs/Meds Orders: Active Orders 24 hr Category Date Time Status Blood Glucose Check, Bedside [RC] ONETIME Care 10/25/20 16:00 Active Peripheral IV Care [RC] . DIRECTED Care 10/25/20 16:02 Active Chest 1V Frontal [CR] Stat Exams 10/25/20 16:01 Taken CORONAVIRUS COVID-19 JUANA [MOLEC] Stat Lab 10/25/20 16:38 Received CULTURE URINE [RM] Stat Lab 10/25/20 16:38 Received Sodium Chloride 0.9% [Saline Flush] Med 10/25/20 16:02 Active 10 ml FLUSH ASDIRECTED PRN Peripheral IV Insertion Adult [OM.PC] Stat Oth 10/25/20 16:02 Ordered Medication Orders Sodium Chloride (Sodium Chloride 0.9% 10 Ml Syringe) 10 ml FLUSH ASDIRECTED PRN PRN Reason: Keep Vein Open Last Admin: 10/25/20 16:37 Dose: 10 ml Documented by: JACKELYN Labs: Laboratory Tests 10/25/20 10/25/20 10/25/20 Range/Units 16:13 16:13 16:13 WBC 13.8 H (5.0-10.0) 10^3/uL RBC 4.13 L (4.2-5.4) 10^6/uL Hgb 13.1 (12.0-16.0) g/dL Hct 39.6 (37.0-47.0) % MCV 95.9 (80-100) fL MCH 31.7 (27.0-34.0) pg MCHC 33.1 (33.0-35.0) g/dL Plt Count 215 (150-450) 10^3/uL Neut % (Auto) 92.2 H (42.2-75.2) % Lymph % (Auto) 5.4 L (20.5-50.1) % [place] % (Auto) 2.3 (2-8) % Eos % (Auto) 0.0 L (1.0-3.0) % Baso % (Auto) 0.1 (0.0-1.0) % PT 10.0 (9.0-12.0) SEC INR 1.0 (0.9-1.2) APTT 25.0 (22.0-34.0) SEC D-Dimer, Quantitative < 100 (0-400) ng/mL Sodium 137 (136-145) mmol/L Potassium 4.2 (3.5-5.1) mmol/L Chloride 100 (98-107) mmol/L Carbon Dioxide 18 L (21-32) mmol/L Anion Gap 23.2 H (7-13) mEq/L BUN 28 H (7-18) mg/dL Creatinine 0.92 (0.55-1.02) mg/dL Est Cr Clr Drug Dosing 63.87 mL/min Estimated GFR (MDRD) > 60 BUN/Creatinine Ratio 30.4 (No establ ref range) Glucose 296 H (70-99) mg/dL POC Glucose (70-99) mg/dL Calcium 8.8 (8.5-10.1) mg/dL Magnesium 1.6 L (1.8-2.4) mg/dL Total Bilirubin 0.2 (0.2-1.0) mg/dL AST 28 (15-37) U/L ALT 28 (14-59) U/L Alkaline Phosphatase 80 (46-116) U/L Troponin I High Sens 8 (<=51) pg/mL Total Protein 7.0 (6.4-8.2) g/dL Albumin 3.8 (3.4-5.0) g/dL Globulin 3.2 Albumin/Globulin Ratio 1.2 Urine Color (YELLOW) Urine Appearance (CLEAR) Urine pH (5.0-9.0) Ur Specific [place] (1.005-1.030) Urine Protein (NEGATIVE) Urine Glucose (UA) (NEGATIVE) Urine Ketones (NEGATIVE) Urine Occult Blood (NEGATIVE) Urine Nitrite (NEGATIVE) Urine Bilirubin (NEGATIVE) Urine Urobilinogen (0.2-1.0) mg/dL Ur Leukocyte Esterase (NEGATIVE) Urine RBC (0-5) /HPF Urine WBC (0-5/HPF) /HPF Ur Epithelial Cells (NOT SEEN) /HPF Amorphous Sediment (NOT SEEN) /HPF Urine Bacteria (0-FEW/HPF) /HPF Urine Mucus (NOT SEEN) /LPF Urine HCG, Qual Urine Opiates Screen (NEGATIVE) Ur Oxycodone Screen (NEGATIVE) Urine Methadone Screen (NEGATIVE) Ur Barbiturates Screen (NEGATIVE) U Tricyclic Antidepress (NEGATIVE) Ur Phencyclidine Scrn (NEGATIVE) Ur Amphetamine Screen (NEGATIVE) U Methamphetamines Scrn (NEGATIVE) Urine MDMA Screen (NEGATIVE) U Benzodiazepines Scrn (NEGATIVE) Urine Cocaine Screen (NEGATIVE) U Marijuana (THC) Screen (NEGATIVE) Ethyl Alcohol < 3 (0) mg/dL Ketones Small-20 mg/dl 10/25/20 10/25/20 10/25/20 Range/Units 16:21 16:38 16:38 WBC (5.0-10.0) 10^3/uL RBC (4.2-5.4) 10^6/uL Hgb (12.0-16.0) g/dL Hct (37.0-47.0) % MCV (80-100) fL MCH (27.0-34.0) pg MCHC (33.0-35.0) g/dL Plt Count (150-450) 10^3/uL Neut % (Auto) (42.2-75.2) % Lymph % (Auto) (20.5-50.1) % [place] % (Auto) (2-8) % Eos % (Auto) (1.0-3.0) % Baso % (Auto) (0.0-1.0) % PT (9.0-12.0) SEC INR (0.9-1.2) APTT (22.0-34.0) SEC D-Dimer, Quantitative (0-400) ng/mL Sodium (136-145) mmol/L Potassium (3.5-5.1) mmol/L Chloride (98-107) mmol/L Carbon Dioxide (21-32) mmol/L Anion Gap (7-13) mEq/L BUN (7-18) mg/dL Creatinine (0.55-1.02) mg/dL Est Cr Clr Drug Dosing mL/min Estimated GFR (MDRD) BUN/Creatinine Ratio (No establ ref range) Glucose (70-99) mg/dL POC Glucose 185 H (70-99) mg/dL Calcium (8.5-10.1) mg/dL Magnesium (1.8-2.4) mg/dL Total Bilirubin (0.2-1.0) mg/dL AST (15-37) U/L ALT (14-59) U/L Alkaline Phosphatase (46-116) U/L Troponin I High Sens (<=51) pg/mL Total Protein (6.4-8.2) g/dL Albumin (3.4-5.0) g/dL Globulin Albumin/Globulin Ratio Urine Color (YELLOW) Urine Appearance (CLEAR) Urine pH (5.0-9.0) Ur Specific [place] (1.005-1.030) Urine Protein (NEGATIVE) Urine Glucose (UA) (NEGATIVE) Urine Ketones (NEGATIVE) Urine Occult Blood (NEGATIVE) Urine Nitrite (NEGATIVE) Urine Bilirubin (NEGATIVE) Urine Urobilinogen (0.2-1.0) mg/dL Ur Leukocyte Esterase (NEGATIVE) Urine RBC (0-5) /HPF Urine WBC (0-5/HPF) /HPF Ur Epithelial Cells (NOT SEEN) /HPF Amorphous Sediment (NOT SEEN) /HPF Urine Bacteria (0-FEW/HPF) /HPF Urine Mucus (NOT SEEN) /LPF Urine HCG, Qual Negative Urine Opiates Screen Negative (NEGATIVE) Ur Oxycodone Screen Negative (NEGATIVE) Urine Methadone Screen Negative (NEGATIVE) Ur Barbiturates Screen Negative (NEGATIVE) U Tricyclic Antidepress Negative (NEGATIVE) Ur Phencyclidine Scrn Negative (NEGATIVE) Ur Amphetamine Screen Negative (NEGATIVE) U Methamphetamines Scrn Negative (NEGATIVE) Urine MDMA Screen Negative (NEGATIVE) U Benzodiazepines Scrn Negative (NEGATIVE) Urine Cocaine Screen Negative (NEGATIVE) U Marijuana (THC) Screen Negative (NEGATIVE) Ethyl Alcohol (0) mg/dL Ketones 10/25/20 Range/Units 16:38 WBC (5.0-10.0) 10^3/uL RBC (4.2-5.4) 10^6/uL Hgb (12.0-16.0) g/dL Hct (37.0-47.0) % MCV (80-100) fL MCH (27.0-34.0) pg MCHC (33.0-35.0) g/dL Plt Count (150-450) 10^3/uL Neut % (Auto) (42.2-75.2) % Lymph % (Auto) (20.5-50.1) % [place] % (Auto) (2-8) % Eos % (Auto) (1.0-3.0) % Baso % (Auto) (0.0-1.0) % PT (9.0-12.0) SEC INR (0.9-1.2) APTT (22.0-34.0) SEC D-Dimer, Quantitative (0-400) ng/mL Sodium (136-145) mmol/L Potassium (3.5-5.1) mmol/L Chloride (98-107) mmol/L Carbon Dioxide (21-32) mmol/L Anion Gap (7-13) mEq/L BUN (7-18) mg/dL Creatinine (0.55-1.02) mg/dL Est Cr Clr Drug Dosing mL/min Estimated GFR (MDRD) BUN/Creatinine Ratio (No establ ref range) Glucose (70-99) mg/dL POC Glucose (70-99) mg/dL Calcium (8.5-10.1) mg/dL Magnesium (1.8-2.4) mg/dL Total Bilirubin (0.2-1.0) mg/dL AST (15-37) U/L ALT (14-59) U/L Alkaline Phosphatase (46-116) U/L Troponin I High Sens (<=51) pg/mL Total Protein (6.4-8.2) g/dL Albumin (3.4-5.0) g/dL Globulin Albumin/Globulin Ratio Urine Color Yellow (YELLOW) Urine Appearance Turbid (CLEAR) Urine pH 5.5 (5.0-9.0) Ur Specific [place] 1.020 (1.005-1.030) Urine Protein Negative (NEGATIVE) Urine Glucose (UA) 100 H (NEGATIVE) Urine Ketones 40 H (NEGATIVE) Urine Occult Blood Small H (NEGATIVE) Urine Nitrite Negative (NEGATIVE) Urine Bilirubin Negative (NEGATIVE) Urine Urobilinogen 0.2 (0.2-1.0) mg/dL Ur Leukocyte Esterase Moderate H (NEGATIVE) Urine RBC 5-10 H (0-5) /HPF Urine WBC >100 H (0-5/HPF) /HPF Ur Epithelial Cells Few (NOT SEEN) /HPF Amorphous Sediment Few (NOT SEEN) /HPF Urine Bacteria Many H (0-FEW/HPF) /HPF Urine Mucus Rare (NOT SEEN) /LPF Urine HCG, Qual Urine Opiates Screen (NEGATIVE) Ur Oxycodone Screen (NEGATIVE) Urine Methadone Screen (NEGATIVE) Ur Barbiturates Screen (NEGATIVE) U Tricyclic Antidepress (NEGATIVE) Ur Phencyclidine Scrn (NEGATIVE) Ur Amphetamine Screen (NEGATIVE) U Methamphetamines Scrn (NEGATIVE) Urine MDMA Screen (NEGATIVE) U Benzodiazepines Scrn (NEGATIVE) Urine Cocaine Screen (NEGATIVE) U Marijuana (THC) Screen (NEGATIVE) Ethyl Alcohol (0) mg/dL Ketones Meds: Medications Generic Name Dose Route Start Last Admin Trade Name Freq PRN Reason Stop Dose Admin Sodium Chloride 10 ml 10/25/20 16:02 10/25/20 16:37 Sodium Chloride 0.9% 10 Ml Syringe FLUSH 10 ml ASDIRECTED PRN Administration Keep Vein Open Discontinued Medications Generic Name Dose Route Start Last Admin Trade Name Freq PRN Reason Stop Dose Admin Dextrose/Water 50 ml 10/25/20 15:59 50% Dextrose In Water 50 Ml Syringe IVPUSH 10/25/20 16:00 ONETIME ONE Sodium Chloride 1,000 mls @ 999 mls/hr 10/25/20 16:03 10/25/20 16:36 Normal Saline IV 10/25/20 17:03 999 mls/hr .BOLUS ONE Administration - Re-Assessments/Exams Free Text/Narrative Re-Assessment/Exam: 10/25/20 I saw and evaluated the patient. Discussed with resident and agree with residents findings and plan as documented in the residents note. (Elvin Marcial) Departure - Departure Time of Disposition: 17:07 - Discharge Information *PRESCRIPTION DRUG MONITORING PROGRAM REVIEWED*: Not Applicable *COPY OF PRESCRIPTION DRUG MONITORING REPORT IN PATIENT ZAFAR: Not Applicable - Departure Disposition: Home, Self-Care 01 Clinical Impression: Hypoglycemia UTI (urinary tract infection) Qualifiers: Urinary tract infection type: acute cystitis Hematuria presence: without hematuria Qualified Code(s): N30.00 - Acute cystitis without hematuria - Discharge Information Forms: ED Department Discharge Additional Instructions: Rx: Macrobid Drink plenty of water. Monitor your blood sugar more closely. Reduce your alcohol consumption. Follow up in clinic if any further concerns. Sepsis Event Note (ED) - Focused Exam Vital Signs: Vital Signs Temp Pulse Resp BP Pulse Ox 10/25/20 16:11 97.1 F 110 H 20 142/79 H 100 - My Orders Last 24 Hours: My Active Orders 10/25/20 16:00 Blood Glucose Check, Bedside [RC] ONETIME 10/25/20 16:01 Chest 1V Frontal [CR] Stat 10/25/20 16:02 Peripheral IV Care [RC] . DIRECTED Sodium Chloride 0.9% [Saline Flush] 10 ml FLUSH ASDIRECTED PRN Peripheral IV Insertion Adult [OM.PC] Stat 10/25/20 16:38 CORONAVIRUS COVID-19 JUANA [MOLEC] Stat CULTURE URINE [RM] Stat - Assessment/Plan Last 24 Hours: My Active Orders 10/25/20 16:00 Blood Glucose Check, Bedside [RC] ONETIME 10/25/20 16:01 Chest 1V Frontal [CR] Stat 10/25/20 16:02 Peripheral IV Care [RC] . DIRECTED Sodium Chloride 0.9% [Saline Flush] 10 ml FLUSH ASDIRECTED PRN Peripheral IV Insertion Adult [OM.PC] Stat 10/25/20 16:38 CORONAVIRUS COVID-19 JUANA [MOLEC] Stat CULTURE URINE [RM] Stat
[2020-10-25 16:45] LABS: ANION GAP 23.2 mEq/L (7-13); CHLORIDE,CL 100 mmol/L (98-107); SODIUM,NA 137 mmol/L (136-145)
[2020-10-25 16:54] LABS: AMPHETAMINES,URINE NEGATIVE (NEGATIVE); BARBITURATES,URINE NEGATIVE (NEGATIVE); BENZODIAZEPINE,URINE NEGATIVE (NEGATIVE); MDMA (ECSTASY), URINE NEGATIVE (NEGATIVE); METHADONE,URINE NEGATIVE (NEGATIVE); METHAMPHETAMINES,URINE NEGATIVE (NEGATIVE); OPIATES,URINE NEGATIVE (NEGATIVE); OXYCODONE,URINE NEGATIVE (NEGATIVE); PHENCYCLIDINE,URINE NEGATIVE (NEGATIVE); TCA,URINE NEGATIVE (NEGATIVE)
[2020-10-25] MEDS ORDERED: Nitrofurantoin Monohydrate/Macrocrystalline 100 MG Cap PO ONE (17:10)
--- NOTE | 2020-10-25 17:39 | CR ---
PROCEDURE INFORMATION: Exam: XR Chest Exam date and time: 10/25/2020 4:45 PM Age: 50 years old Clinical indication: Other: Syncope TECHNIQUE: Imaging protocol: XR of the chest. Views: 1 view. COMPARISON: No relevant prior studies available. FINDINGS: Lungs: Unremarkable. No consolidation. Pleural spaces: Unremarkable. No pleural effusion. No pneumothorax. Heart/Mediastinum: Unremarkable. No cardiomegaly. Bones/joints: Unremarkable. IMPRESSION: No acute findings.
== END 2020-10-25 17:22 | disposition home or self-care (01) ==
LOC: DL.ED 15:59
DX: N30.00 Acute cystitis without hematuria (principal); E11.649 Type 2 diabetes mellitus with hypoglycemia without coma; E78.00 Pure hypercholesterolemia, unspecified; I10 Essential (primary) hypertension; Z79.4 Long term (current) use of insulin; Z79.899 Other long term (current) drug therapy
CPT/HCPCS: 36415; 71045; 80053; 80305; 80307; 81001; 81025; 82009; 82947; 83735; 84484; 85025; 85379; 85610; 85730; 87086; 87635; 93005; 99285; A9270; J7030; U0002

== ENCOUNTER 2020-11-04 11:44 | Emergency (ER) | payer MEDICAID ==
[2020-11-04] MEDS ORDERED: Sodium Chloride 0.9% 1,000 ML IV ONE (12:41)
[2020-11-04] MEDS ORDERED: Ondansetron 4 MG/2 ML SDV IVPUSH ONE (12:41)
[2020-11-04 12:57] LABS: AMPHETAMINES,URINE NEGATIVE (NEGATIVE); BARBITURATES,URINE NEGATIVE (NEGATIVE); BENZODIAZEPINE,URINE NEGATIVE (NEGATIVE); MDMA (ECSTASY), URINE NEGATIVE (NEGATIVE); METHADONE,URINE NEGATIVE (NEGATIVE); METHAMPHETAMINES,URINE NEGATIVE (NEGATIVE); OPIATES,URINE NEGATIVE (NEGATIVE); OXYCODONE,URINE NEGATIVE (NEGATIVE); PHENCYCLIDINE,URINE NEGATIVE (NEGATIVE); TCA,URINE NEGATIVE (NEGATIVE)
[2020-11-04 12:57] LABS: ANION GAP 12.1 mEq/L (7-13); CHLORIDE,CL 106 mmol/L (98-107); SODIUM,NA 141 mmol/L (136-145)
[2020-11-04] MEDS ORDERED: Iopamidol 612 MG/ML 100 ML Bottle IVPUSH ONE (13:10)
[2020-11-04] MEDS ORDERED: HYDROmorphone 1 MG/ML Syringe IVPUSH ONE ×2 (13:34→15:56)
--- NOTE | 2020-11-04 15:10 | CT ---
EXAMINATION: Abdomen Pelvis w Cont SEX: Female AGE: 50 years CLINICAL HISTORY: 50-year-old hypertensive 125 pound diabetic female smoker with history "colon Surgery" and now bilateral lower quadrant abdominal pain. CT exam 18 August 2020 revealed "diverticulitis LLQ; nonobstructing nephrolithiasis right kidney; foreign body RLQ region of cecum". Reevaluate please. Scan technique: Volume acquisition of data from the abdomen and pelvis obtained without oral contrast but during the intravenous administration 75 cc nonionic Isovue contrast 3 cc/s via injector while patient was lying supine on the Siemens multi slice scanner [place], [place]. All data archived in the PACS system for storage, reformatting Interpretation: 1. *Small amount of free fluid in the dependent pelvis "bathing" the uterus. No adnexal or ovarian mass. Cyst rupture? 2. No current signs of diverticulitis. No pelvic or abdominal mass lesion (no abscess). No sign of inflammatory "dirty" peritoneal fat or mechanical bowel obstruction. No free intraperitoneal air. 3. Tiny intrahepatic cyst right lobe of the liver. Gallbladder, liver, stomach, spleen, pancreas and adrenal glands anatomically correct and negative. Large and small intestine unremarkable. 4. Isolated tiny 4 mm oval calcification lower pole calyx right kidney. No other signs of nephrolithiasis or obstructive uropathy. No renal cortical mass. Symmetrically distended unenhanced urinary bladder unremarkable. 5. Normal caliber aortoiliac vessels. Chronic lower lumbar disc disease. 6. Lung bases clear. Normal cardiac silhouette. No pericardial or pleural effusions. CONCLUSION: Small volume ascitic fluid (pelvis). Nephrolithiasis right kidney (no obstruction). No sign of abdominal malignancy, acute peritonitis or mechanical bowel obstruction. L5-S1 disc disease.
--- NOTE | 2020-11-04 16:02 | EDM.PDOC ---
ED HPI GENERAL MEDICAL PROBLEM - General Chief Complaint: Abdominal Pain Stated Complaint: POSSIBLE DIVERTICULITIS Time Seen by Provider: 11/04/20 12:10 Source of Information: Reports: Patient, RN, RN Notes Reviewed History Limitations: Reports: No Limitations - History of Present Illness INITIAL COMMENTS - FREE TEXT/NARRATIVE: Lauren is a 50 y/o female who presents to the ED via personal vehicle with complaints of bilateral lower abdominal pain. The patient states her pain began abruptly approximately six hours prior and has progressively worsened in that time. Additionally, she reports nausea without vomiting. She has taken no medications or performed supportive cares for her symptoms. The patient denies fever, shaking chills, shortness of breath, dyspepsia, dysuria, hematuria, constipation, or diarrhea. She attest to drinking alcohol in the past 24 hours as well as daily vaping; she denies recreational drug use. Abdomen Pain Score (Numeric/FACES): 9 - Related Data Allergies Allergy/AdvReac Type Severity Reaction Status Date / Time No Known Allergies Allergy Verified 11/04/20 12:05 Home Meds: Home Meds Insulin Glarg,Human.Rec.Analog [Lantus Solostar] 30 units SQ BEDTIME 05/25/17 [History] Lisinopril 5 mg PO DAILY 05/25/17 [History] Simvastatin 20 mg PO BEDTIME 05/25/17 [History] Alendronate Sodium [Fosamax] 70 mg PO .WEEKLY 03/31/20 [History] Insulin Lispro [Humalog] 10 units SQ TIDMEALS 03/31/20 [History] metFORMIN HCl [Metformin HCl] 500 mg PO BID 03/31/20 [History] Calcium Carbonate [Calcium] 600 mg PO BID 04/17/20 [History] Cholecalciferol (Vitamin D3) [Vitamin D3] 2,000 unit PO DAILY 04/17/20 [History] Past Medical History HEENT History: Reports: None Cardiovascular History: Reports: High Cholesterol, Hypertension Respiratory History: Reports: None Gastrointestinal History: Reports: None Genitourinary History: Reports: None 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: Musculoskeletal History: Reports: None Neurological History: Reports: None Psychiatric History: Reports: None Endocrine/Metabolic History: Reports: Diabetes, Type II, IDDM Hematologic History: Reports: None Immunologic History: Reports: None Oncologic (Cancer) History: Reports: None Dermatologic History: Reports: None - Infectious Disease History Infectious Disease History: Reports: Chicken Pox - Past Surgical History Head Surgeries/Procedures: Reports: None HEENT Surgical History: Reports: Adenoidectomy, Cataract Surgery, Tonsillectomy Cardiovascular Surgical History: Reports: None Respiratory Surgical History: Reports: None GI Surgical History: Reports: None Female Surgical History: Reports: Section Endocrine Surgical History: Reports: None Neurological Surgical History: Reports: None Musculoskeletal Surgical History: Reports: Other (See Below) Other Musculoskeletal Surgeries/Procedures:: jaw surgery Oncologic Surgical History: Reports: None Dermatological Surgical History: Reports: Other (See Below) Social & Family History - Family History Family Medical History: No Pertinent Family History - Caffeine Use Caffeine Use: Reports: Coffee, Energy Drinks, Soda, Tea Other Caffeine Use: 3-4 TIMES A WEEK - Alcohol Use Days Per Week of Alcohol Use: 2 Number of Drinks Per Day: 6 Total Drinks Per Week: 12 - Recreational Drug Use Recreational Drug Use: No - Living Situation & Occupation Living situation: Reports: with Family ED ROS GENERAL - Review of Systems Review Of Systems: Comprehensive ROS is negative, except as noted in HPI. ED EXAM, GI/ABD - Physical Exam Exam: See Below Exam Limited By: No Limitations General Appearance: Alert, No Apparent Distress Eyes: Bilateral: Normal Appearance, EOMI Ears: Normal External Exam, Hearing Grossly Normal Nose: Normal Inspection, Normal Mucosa, No Blood Throat/Mouth: Normal Inspection, Normal Oropharynx, Normal Voice, No Airway Compromise Head: Atraumatic, Normocephalic Neck: Normal Inspection, Supple, Non-Tender, Full Range of Motion Respiratory/Chest: No Respiratory Distress, Lungs Clear, Normal Breath Sounds, No Accessory Muscle Use, Chest Non-Tender Cardiovascular: Normal Peripheral Pulses, Regular Rate, Rhythm, No Gallop, No Murmur, No Rub GI/Abdominal Exam: Soft, No Distention, No Abnormal Bruit, Pelvis Stable, Guarding, Tender (To palpation of bilateral lower quadrants), Abnormal Bowel Sounds (Hypoactive bowel sounds). No: Rigid, Rebound (Female) Exam: Deferred Rectal (Female) Exam: Deferred Back Exam: Normal Inspection, Full Range of Motion. No: CVA Tenderness (L), CVA Tenderness (R) Extremities: Normal Inspection, Normal Range of Motion, Normal Capillary Refill Neurological: Alert, Oriented, CN II-XII Intact, Normal Cognition, Normal Gait, No Motor/Sensory Deficits Psychiatric: Normal Affect, Normal Mood Skin Exam: Warm, Dry, Intact, Normal Color, No Rash. No: Cyanosis, Diaphoretic, Jaundice, Mottled, Pallor Course - Vital Signs Last Recorded V/S: Last Vital Signs Temp 99.0 F 11/04/20 12:06 Pulse 140 H 11/04/20 12:06 Resp 18 11/04/20 12:06 BP 97/70 11/04/20 16:00 Pulse Ox 98 11/04/20 12:06 - Orders/Labs/Meds Labs: Laboratory Tests 11/04/20 11/04/20 11/04/20 Range/Units 12:21 12:21 12:29 WBC 13.3 H (5.0-10.0) 10^3/uL RBC 4.23 (4.2-5.4) 10^6/uL Hgb 13.4 (12.0-16.0) g/dL Hct 40.7 (37.0-47.0) % MCV 96.2 (80-100) fL MCH 31.7 (27.0-34.0) pg MCHC 32.9 L (33.0-35.0) g/dL Plt Count 198 (150-450) 10^3/uL Neut % (Auto) 92.9 H (42.2-75.2) % Lymph % (Auto) 3.2 L (20.5-50.1) % [place] % (Auto) 3.7 (2-8) % Eos % (Auto) 0.1 L (1.0-3.0) % Baso % (Auto) 0.1 (0.0-1.0) % Sodium (136-145) mmol/L Potassium (3.5-5.1) mmol/L Chloride (98-107) mmol/L Carbon Dioxide (21-32) mmol/L Anion Gap (7-13) mEq/L BUN (7-18) mg/dL Creatinine (0.55-1.02) mg/dL Est Cr Clr Drug Dosing mL/min Estimated GFR (MDRD) BUN/Creatinine Ratio (No establ ref range) Glucose (70-99) mg/dL Calcium (8.5-10.1) mg/dL Total Bilirubin (0.2-1.0) mg/dL AST (15-37) U/L ALT (14-59) U/L Alkaline Phosphatase (46-116) U/L Total Protein (6.4-8.2) g/dL Albumin (3.4-5.0) g/dL Globulin Albumin/Globulin Ratio Amylase (25-115) U/L Lipase (73-393) U/L Urine Color [place] (YELLOW) Urine Appearance Slightly cloudy (CLEAR) Urine pH 6.0 (5.0-9.0) Ur Specific [place] 1.025 (1.005-1.030) Urine Protein Negative (NEGATIVE) Urine Glucose (UA) Negative (NEGATIVE) Urine Ketones Trace H (NEGATIVE) Urine Occult Blood Negative (NEGATIVE) Urine Nitrite Negative (NEGATIVE) Urine Bilirubin Negative (NEGATIVE) Urine Urobilinogen 0.2 (0.2-1.0) mg/dL Ur Leukocyte Esterase Trace H (NEGATIVE) Urine RBC 0-5 (0-5) /HPF Urine WBC 0-5 (0-5/HPF) /HPF Ur Epithelial Cells Many H (NOT SEEN) /HPF Calcium Oxalate Crystal Rare (NOT SEEN) /HPF Urine Bacteria Many H (0-FEW/HPF) /HPF Urine Opiates Screen Negative (NEGATIVE) Ur Oxycodone Screen Negative (NEGATIVE) Urine Methadone Screen Negative (NEGATIVE) Ur Barbiturates Screen Negative (NEGATIVE) U Tricyclic Antidepress Negative (NEGATIVE) Ur Phencyclidine Scrn Negative (NEGATIVE) Ur Amphetamine Screen Negative (NEGATIVE) U Methamphetamines Scrn Negative (NEGATIVE) Urine MDMA Screen Negative (NEGATIVE) U Benzodiazepines Scrn Negative (NEGATIVE) Urine Cocaine Screen Negative (NEGATIVE) U Marijuana (THC) Screen Negative (NEGATIVE) 11/04/20 11/04/20 Range/Units 12:29 12:29 WBC (5.0-10.0) 10^3/uL RBC (4.2-5.4) 10^6/uL Hgb (12.0-16.0) g/dL Hct (37.0-47.0) % MCV (80-100) fL MCH (27.0-34.0) pg MCHC (33.0-35.0) g/dL Plt Count (150-450) 10^3/uL Neut % (Auto) (42.2-75.2) % Lymph % (Auto) (20.5-50.1) % [place] % (Auto) (2-8) % Eos % (Auto) (1.0-3.0) % Baso % (Auto) (0.0-1.0) % Sodium 141 (136-145) mmol/L Potassium 4.1 (3.5-5.1) mmol/L Chloride 106 (98-107) mmol/L Carbon Dioxide 27 (21-32) mmol/L Anion Gap 12.1 (7-13) mEq/L BUN 22 H (7-18) mg/dL Creatinine 0.92 (0.55-1.02) mg/dL Est Cr Clr Drug Dosing 63.87 mL/min Estimated GFR (MDRD) > 60 BUN/Creatinine Ratio 23.9 (No establ ref range) Glucose 87 (70-99) mg/dL Calcium 9.2 (8.5-10.1) mg/dL Total Bilirubin 0.6 (0.2-1.0) mg/dL AST 18 (15-37) U/L ALT 22 (14-59) U/L Alkaline Phosphatase 66 (46-116) U/L Total Protein 7.1 (6.4-8.2) g/dL Albumin 3.8 (3.4-5.0) g/dL Globulin 3.3 Albumin/Globulin Ratio 1.2 Amylase 73 (25-115) U/L Lipase 82 (73-393) U/L Urine Color (YELLOW) Urine Appearance (CLEAR) Urine pH (5.0-9.0) Ur Specific [place] (1.005-1.030) Urine Protein (NEGATIVE) Urine Glucose (UA) (NEGATIVE) Urine Ketones (NEGATIVE) Urine Occult Blood (NEGATIVE) Urine Nitrite (NEGATIVE) Urine Bilirubin (NEGATIVE) Urine Urobilinogen (0.2-1.0) mg/dL Ur Leukocyte Esterase (NEGATIVE) Urine RBC (0-5) /HPF Urine WBC (0-5/HPF) /HPF Ur Epithelial Cells (NOT SEEN) /HPF Calcium Oxalate Crystal (NOT SEEN) /HPF Urine Bacteria (0-FEW/HPF) /HPF Urine Opiates Screen (NEGATIVE) Ur Oxycodone Screen (NEGATIVE) Urine Methadone Screen (NEGATIVE) Ur Barbiturates Screen (NEGATIVE) U Tricyclic Antidepress (NEGATIVE) Ur Phencyclidine Scrn (NEGATIVE) Ur Amphetamine Screen (NEGATIVE) U Methamphetamines Scrn (NEGATIVE) Urine MDMA Screen (NEGATIVE) U Benzodiazepines Scrn (NEGATIVE) Urine Cocaine Screen (NEGATIVE) U Marijuana (THC) Screen (NEGATIVE) Meds: Medications Discontinued Medications Generic Name Dose Route Start Last Admin Trade Name Antonio PRN Reason Stop Dose Admin Hydromorphone HCl 1 mg 11/04/20 13:34 11/04/20 13:41 Hydromorphone 1 Mg/Ml Syringe IVPUSH 11/04/20 13:35 1 mg ONETIME ONE Administration Hydromorphone HCl 1 mg 11/04/20 15:56 11/04/20 16:13 Hydromorphone 1 Mg/Ml Syringe IVPUSH 11/04/20 15:57 1 mg ONETIME ONE Administration Sodium Chloride 1,000 mls @ 999 mls/hr 11/04/20 12:41 11/04/20 12:51 Normal Saline IV 11/04/20 13:41 999 mls/hr .BOLUS ONE Administration Iopamidol 100 ml 11/04/20 13:10 11/04/20 13:46 Iopamidol 612 Mg/Ml 100 Ml Bottle IVPUSH 11/04/20 13:11 75 ml ONETIME ONE Administration Ondansetron HCl 4 mg 11/04/20 12:41 11/04/20 12:51 Ondansetron 4 Mg/2 Ml Sdv IVPUSH 11/04/20 12:42 4 mg ONETIME ONE Administration - Re-Assessments/Exams Free Text/Narrative Re-Assessment/Exam: 11/04/20 NS 1L bolus initiated. Zofran 4mg IVP and Dilaudid 1mg IVP administered. CT abdomen/pelvis obtained. Patient verbalized improvement in symptoms following medication administration. Dilaudid 1mg administered for return of pain. Patient again verbalized improvement in pain. Findings of examination, imaging, and lab work reviewed with patient. Will treat nausea with Zofran ODT. Supportive cares discussed. Patient instructed to follow up with PCP regarding today's visit. Red flag signs and symptoms which would warrant immediate reevaluation reviewed. Patient verbalized understanding and agreement with the plan of care. Departure - Departure Time of Disposition: 15:56 Disposition: Home, Self-Care 01 Clinical Impression: Renal calculus, right, Ovarian cyst rupture, Liver cyst - Discharge Information *PRESCRIPTION DRUG MONITORING PROGRAM REVIEWED*: Not Applicable *COPY OF PRESCRIPTION DRUG MONITORING REPORT IN PATIENT ZAFAR: Not Applicable Instructions: Kidney Stones, Ovarian Cyst Referrals: PCP,None [Primary Care Provider] - Forms: ED Department Discharge Additional Instructions: Rx: Zofran ODT 1.) Apply a warm pack to the abdomen for pain. 2.) You may take ibuprofen (Motrin/Advil) 400-800mg every six hours, as pain persists. You may also take acetaminophen (Tylenol) 650-1000mg every six hours, as pain persists. You may stagger these medications so you are taking a dose every three hours. 3.) Follow up with your primary care provider in 3-5 days regarding today's visit. 4.) Return to the emergency department with any fever, persistent pain, or persistent nausea and vomiting.
== END 2020-11-04 16:16 | disposition home or self-care (01) ==
LOC: DL.ED 11:44
DX: N20.0 Calculus of kidney (principal); N83.201 Unspecified ovarian cyst, right side; K76.89 Other specified diseases of liver; E78.00 Pure hypercholesterolemia, unspecified; I10 Essential (primary) hypertension; E11.9 Type 2 diabetes mellitus without complications; Z79.4 Long term (current) use of insulin; Z79.899 Other long term (current) drug therapy
CPT/HCPCS: 36415; 74177; 80053; 80305; 81001; 82150; 83690; 85025; 87086; 96374; 96375; 96376; 99284; J1170; J2405; J7030; Q9967; 99283

== ENCOUNTER 2020-12-05 15:29 | Emergency (ER) | payer MEDICAID ==
[2020-12-05] MEDS ORDERED: Magnesium Citrate Solution 296 ML Bottle PO ONE (15:30)
--- NOTE | 2020-12-05 16:31 | EDM.PDOC ---
ED HPI GENERAL MEDICAL PROBLEM - General Chief Complaint: Abdominal Pain Stated Complaint: ABDOMINAL PAIN Time Seen by Provider: 12/05/20 16:20 Source of Information: Reports: Patient History Limitations: Reports: No Limitations - History of Present Illness INITIAL COMMENTS - FREE TEXT/NARRATIVE: This 50 yo female patient reports to the ED with diffuse abdominal pain. The patient reports her symptoms started 4 days ago and have gotten worse today. The patient has a history of an ovarian cyst and diverticulitis. The patient reports she feels like she may be constipated and has not had a bowel movement in the past 3 days. The patient reports she took Dulcolax yesterday and ibuprofen today. The patient reports she has not had a bowel movement, but her pain was a little better. 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 Abdominal Pain Score (Numeric/FACES): 7 - Related Data Allergies Allergy/AdvReac Type Severity Reaction Status Date / Time No Known Allergies Allergy Verified 12/05/20 16:10 Home Meds: Home Meds Insulin Glarg,Human.Rec.Analog [Lantus Solostar] 30 units SQ BEDTIME 05/25/17 [History] Lisinopril 5 mg PO DAILY 05/25/17 [History] Simvastatin 20 mg PO BEDTIME 05/25/17 [History] Alendronate Sodium [Fosamax] 70 mg PO .WEEKLY 03/31/20 [History] Insulin Lispro [Humalog] 10 units SQ TIDMEALS 03/31/20 [History] metFORMIN HCl [Metformin HCl] 500 mg PO BID 03/31/20 [History] Cholecalciferol (Vitamin D3) [Vitamin D3] 2,000 unit PO DAILY 04/17/20 [History] Past Medical History HEENT History: Reports: None Cardiovascular History: Reports: High Cholesterol, Hypertension Respiratory History: Reports: None Gastrointestinal History: Reports: None Genitourinary History: Reports: None 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: Musculoskeletal History: Reports: None Neurological History: Reports: None Psychiatric History: Reports: None Endocrine/Metabolic History: Reports: Diabetes, Type II, IDDM Hematologic History: Reports: None Immunologic History: Reports: None Oncologic (Cancer) History: Reports: None Dermatologic History: Reports: None - Infectious Disease History Infectious Disease History: Reports: Chicken Pox - Past Surgical History Head Surgeries/Procedures: Reports: None HEENT Surgical History: Reports: Adenoidectomy, Cataract Surgery, Tonsillectomy Cardiovascular Surgical History: Reports: None Respiratory Surgical History: Reports: None GI Surgical History: Reports: None Female Surgical History: Reports: Section Endocrine Surgical History: Reports: None Neurological Surgical History: Reports: None Musculoskeletal Surgical History: Reports: Other (See Below) Other Musculoskeletal Surgeries/Procedures:: jaw surgery Oncologic Surgical History: Reports: None Dermatological Surgical History: Reports: Other (See Below) Social & Family History - Family History Family Medical History: No Pertinent Family History - Tobacco Use Years of Tobacco use: 1 Packs/Tins Daily: 0.5 Second Hand Smoke Exposure: No - Caffeine Use Caffeine Use: Reports: Coffee, Soda Other Caffeine Use: 3-4 TIMES A WEEK - Recreational Drug Use Recreational Drug Use: No - Living Situation & Occupation Living situation: Reports: with Family ED ROS GENERAL - Review of Systems Review Of Systems: Comprehensive ROS is negative, except as noted in HPI. ED EXAM, GI/ABD - Physical Exam Exam: See Below Exam Limited By: No Limitations General Appearance: Alert, WD/WN, Moderate Distress Eyes: Bilateral: Normal Appearance, EOMI Ears: Normal External Exam, Normal Canal, Hearing Grossly Normal, Normal TMs Nose: Normal Inspection, Normal Mucosa, No Blood Throat/Mouth: Normal Inspection, Normal Lips, Normal Teeth, Normal Gums, Normal Oropharynx, Normal Voice, No Airway Compromise Head: Atraumatic, Normocephalic Neck: Normal Inspection, Supple, Non-Tender, Full Range of Motion Respiratory/Chest: No Respiratory Distress, Lungs Clear, Normal Breath Sounds, No Accessory Muscle Use, Chest Non-Tender Cardiovascular: Normal Peripheral Pulses, Regular Rate, Rhythm, No Edema, No Gallop, No JVD, No Murmur, No Rub GI/Abdominal Exam: Normal Bowel Sounds, Soft, Tender (diffuse) (Female) Exam: Deferred Rectal (Female) Exam: Deferred Back Exam: Normal Inspection, Full Range of Motion, NT Extremities: Normal Inspection, Normal Range of Motion, Non-Tender, Normal Capillary Refill, No Pedal Edema Neurological: Alert, Oriented, CN II-XII Intact, Normal Cognition, Normal Gait, Normal Reflexes, No Motor/Sensory Deficits Psychiatric: Normal Affect, Normal Mood Skin Exam: Warm, Dry, Intact, Normal Color, No Rash Lymphatic: No Adenopathy Course - Vital Signs Last Recorded V/S: Last Vital Signs Temp 99 F 12/05/20 16:04 Pulse 107 H 12/05/20 16:04 Resp 16 12/05/20 16:04 BP 130/89 12/05/20 16:04 Pulse Ox 99 12/05/20 16:04 - Orders/Labs/Meds Orders: Active Orders 24 hr Category Date Time Status Blood Glucose Check, Bedside [RC] ONETIME Care 12/05/20 17:32 Ordered Abdomen 1V Flat [CR] Urgent Exams 12/05/20 17:31 Ordered CULTURE BLOOD [BC] Stat Lab 12/05/20 16:25 Ordered Labs: Laboratory Tests 12/05/20 12/05/20 12/05/20 Range/Units 16:38 16:38 16:38 WBC 6.9 (5.0-10.0) 10^3/uL RBC 4.01 L (4.2-5.4) 10^6/uL Hgb 12.4 (12.0-16.0) g/dL Hct 38.1 (37.0-47.0) % MCV 95.0 (80-100) fL MCH 30.9 (27.0-34.0) pg MCHC 32.5 L (33.0-35.0) g/dL Plt Count 220 (150-450) 10^3/uL Neut % (Auto) 66.5 (42.2-75.2) % Lymph % (Auto) 24.6 (20.5-50.1) % [place] % (Auto) 7.2 (2-8) % Eos % (Auto) 1.3 (1.0-3.0) % Baso % (Auto) 0.4 (0.0-1.0) % Sodium 146 H (136-145) mmol/L Potassium 3.6 (3.5-5.1) mmol/L Chloride 108 H (98-107) mmol/L Carbon Dioxide 28 (21-32) mmol/L Anion Gap 13.6 H (7-13) mEq/L BUN 19 H (7-18) mg/dL Creatinine 0.78 (0.55-1.02) mg/dL Est Cr Clr Drug Dosing 75.34 mL/min Estimated GFR (MDRD) > 60 BUN/Creatinine Ratio 24.4 (No establ ref range) Glucose 53 L (70-99) mg/dL Lactic Acid 1.3 (0.4-2.0) mmol/L Calcium 9.3 (8.5-10.1) mg/dL Total Bilirubin 0.2 (0.2-1.0) mg/dL AST 21 (15-37) U/L ALT 32 (14-59) U/L Alkaline Phosphatase 72 (46-116) U/L Total Protein 7.3 (6.4-8.2) g/dL Albumin 4.0 (3.4-5.0) g/dL Globulin 3.3 Albumin/Globulin Ratio 1.2 - Re-Assessments/Exams Free Text/Narrative Re-Assessment/Exam: 12/05/20 17:49 The patient reports she is currently feeling much better than when she came into the ED. Departure - Departure Time of Disposition: 17:50 Disposition: Home, Self-Care 01 Condition: Fair Clinical Impression: Hyponatremia, Bronchitis - Discharge Information *PRESCRIPTION DRUG MONITORING PROGRAM REVIEWED*: Not Applicable *COPY OF PRESCRIPTION DRUG MONITORING REPORT IN PATIENT ZAFAR: Not Applicable Instructions: Hyponatremia, [id number], Acute Bronchitis, Adult Forms: ED Department Discharge Care Plan Goals: The patient was advised of the examination, lab and x-ray results during the visit. The patient was given an IV dose of Rocephin, a liter of IV fluids and an oral dose of Azithromycin while in the ED. The patient was discharged with a script for Azithromycin (250 mg) #4 to take 1 by mouth daily for 4 days (starting tomorrow). The patient was encouraged to increase her oral nutrition intake. If the patient has any additional symptoms or concerns, the patient should either return to the emergency department or visit her primary care facility. Sepsis Event Note (ED) - Evaluation Sepsis Screening Result: No Definite Risk - Focused Exam Vital Signs: Vital Signs Temp Pulse Resp BP Pulse Ox 12/05/20 16:04 99 F 107 H 16 130/89 99 - My Orders Last 24 Hours: My Active Orders 12/05/20 16:25 CULTURE BLOOD [BC] Stat 12/05/20 17:31 Abdomen 1V Flat [CR] Urgent 12/05/20 17:32 Blood Glucose Check, Bedside [RC] ONETIME - Assessment/Plan Last 24 Hours: My Active Orders 12/05/20 16:25 CULTURE BLOOD [BC] Stat 12/05/20 17:31 Abdomen 1V Flat [CR] Urgent 12/05/20 17:32 Blood Glucose Check, Bedside [RC] ONETIME
[2020-12-05 17:28] LABS: ANION GAP 13.6 mEq/L (7-13); CHLORIDE,CL 108 mmol/L (98-107); SODIUM,NA 146 mmol/L (136-145)
[2020-12-05] MEDS ORDERED: Magnesium Citrate Solution 296 ML Bottle ONE (18:15)
--- NOTE | 2020-12-05 18:33 | CR ---
PROCEDURE INFORMATION: Exam: XR Abdomen Exam date and time: 12/05/2020 5:44 PM Age: 50 years old Clinical indication: Other: Pain; Additional info: Diffuse abdominal pain TECHNIQUE: Imaging protocol: XR of the abdomen. Views: Frontal supine view of the abdomen. 1 View. COMPARISON: CR Chest 1V Frontal 10/25/2020 4:45 PM FINDINGS: Gastrointestinal tract: Normal. No bowel dilation. Prominent fecal burden. Bones/joints: Unremarkable. IMPRESSION: No acute findings.
== END 2020-12-05 18:38 | disposition home or self-care (01) ==
LOC: DL.ED 15:29
DX: J40 Bronchitis, not specified as acute or chronic (principal); E87.1 Hypo-osmolality and hyponatremia; E78.00 Pure hypercholesterolemia, unspecified; I10 Essential (primary) hypertension; E11.9 Type 2 diabetes mellitus without complications; Z79.4 Long term (current) use of insulin; Z72.0 Tobacco use
CPT/HCPCS: 36415; 74018; 80053; 82947; 83605; 85025; 87040; 99284-25; A9270-GY

== ENCOUNTER 2021-01-09 12:27 | Emergency (ER) | payer MEDICAID ==
[2021-01-09] MEDS ORDERED: Ondansetron 4 MG/2 ML SDV IVPUSH ONE (12:52)
[2021-01-09] MEDS ORDERED: HYDROmorphone 1 MG/ML Syringe IVPUSH ONE (12:52)
[2021-01-09] MEDS ORDERED: Sodium Chloride 0.9% 1,000 ML IV ONE (13:01)
[2021-01-09 13:09] LABS: ANION GAP 13.1 mEq/L (7-13); CHLORIDE,CL 100 mmol/L (98-107); SODIUM,NA 134 mmol/L (136-145)
--- NOTE | 2021-01-09 14:24 | CT ---
PROCEDURE INFORMATION: Exam: CT Abdomen And Pelvis Without Contrast Exam date and time: 01/09/2021 1:36 PM Age: 50 years old Clinical indication: Abdominal pain; Additional info: R/O right renal stone; Right flank pain and colick TECHNIQUE: Imaging protocol: Computed tomography of the abdomen and pelvis without contrast. Radiation optimization: All CT scans at this facility use at least one of these dose optimization techniques: automated exposure control; mA and/or kV adjustment per patient size (includes targeted exams where dose is matched to clinical indication); or iterative reconstruction. COMPARISON: CT Abdomen Pelvis w Cont 11/04/2020 1:45 PM (images only; no report) FINDINGS: Lungs: Minimal bibasilar atelectasis versus scarring. Diaphragm: Small sliding hiatal hernia. Liver: There is a simple hepatic cyst. Otherwise unremarkable non-contrast appearance of the liver. Gallbladder and bile ducts: Unremarkable CT appearance of the gallbladder. There is no evidence of biliary ductal dilation. Pancreas: The pancreas is within normal limits. Spleen: The spleen is normal. Adrenal glands: The adrenal glands are normal. Kidneys and ureters: Moderate left hydronephrosis and hydroureter secondary to an obstructing 4 x 3 mm calculus in the distal ureter, just proximal to the UVJ. There are multiple left renal collecting system calcifications. There is no left hydronephrosis. Stomach and bowel: There is no evidence of bowel obstruction or intestinal perforation. Appendix: No evidence of appendicitis. Intraperitoneal space: No pneumoperitoneum. No abnormal free fluid or fluid collection. Vasculature: The aorta demonstrates mild atherosclerotic calcification. No aortic aneurysm. Lymph nodes: There is no evidence of lymphadenopathy. Urinary bladder: The urinary bladder is within normal limits. Reproductive: The uterus is unremarkable as visualized. No evidence of adnexal mass. Bones/joints: No acute fracture or dislocation. Soft tissues: There is a small fat-containing periumbilical hernia. IMPRESSION: Moderate left hydronephrosis and hydroureter secondary to an obstructing 4 x 3 mm calculus in the distal ureter, just proximal to the UVJ.
[2021-01-09] MEDS ORDERED: Tamsulosin 0.4 MG Cap.ER PO ONE (14:41)
--- NOTE | 2021-01-09 14:46 | EDM.PDOC ---
"ED HPI GENERAL MEDICAL PROBLEM - General Chief Complaint: Flank Pain Stated Complaint: SEVERE SIDE PAIN / VOMITING Time Seen by Provider: 01/09/21 13:00 Source of Information: Reports: Patient, Old Records, RN, RN Notes Reviewed History Limitations: Reports: No Limitations - History of Present Illness INITIAL COMMENTS - FREE TEXT/NARRATIVE: Linh is a 50 y/o female who presents to the ED via personal vehicle with complaints of right flank pain, nausea, and vomiting. The patient reports her pain began this morning and has rapidly increased in severity; her nausea and vomiting began shortly prior to her arrival to this facility. She characterizes the pain as sharp and constant with radiation into her right suprapubic area. She denies recent illness, fever, rigors, shortness of breath, palpitations, dysuria, hematuria, or diarrhea. The patient's last bowel movement was two days ago, which is not her normal pattern. Her last meal was last night. The patient is postmenopausal. She attests to vaping nicotine daily and recreationally drinks alcohol with her last drink two nights ago; she denies recreational drug use. Right Flank Pain Score (Numeric/FACES): 8 - Related Data Allergies Allergy/AdvReac Type Severity Reaction Status Date / Time No Known Allergies Allergy Verified 01/09/21 12:44 Home Meds: Home Meds Insulin Glarg,Human.Rec.Analog [Lantus Solostar] 30 units SQ BEDTIME 05/25/17 [History] Lisinopril 5 mg PO DAILY 05/25/17 [History] Simvastatin 20 mg PO BEDTIME 05/25/17 [History] Alendronate Sodium [Fosamax] 70 mg PO .WEEKLY 03/31/20 [History] Insulin Lispro [Humalog] 10 units SQ TIDMEALS 03/31/20 [History] metFORMIN HCl [Metformin HCl] 500 mg PO BID 03/31/20 [History] Ibuprofen [Advil] 800 mg PO QID PRN MDD 3200 12/14/20 [History] Past Medical History HEENT History: Reports: None Cardiovascular History: Reports: High Cholesterol, Hypertension Respiratory History: Reports: None Gastrointestinal History: Reports: Chronic Constipation Genitourinary History: Reports: None 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 , Musculoskeletal History: Reports: None Neurological History: Reports: None Psychiatric History: Reports: None Endocrine/Metabolic History: Reports: Diabetes, Type II, IDDM Hematologic History: Reports: None Immunologic History: Reports: None Oncologic (Cancer) History: Reports: None Dermatologic History: Reports: None - Infectious Disease History Infectious Disease History: Reports: Chicken Pox, Influenza, Novel Coronavirus - Past Surgical History Head Surgeries/Procedures: Reports: None HEENT Surgical History: Reports: Adenoidectomy, Cataract Surgery, Tonsillectomy Cardiovascular Surgical History: Reports: None Respiratory Surgical History: Reports: None GI Surgical History: Reports: None, Colonoscopy, Polypectomy Female Surgical History: Reports: Section Other Female Surgeries/Procedures: both c sections Endocrine Surgical History: Reports: None Neurological Surgical History: Reports: None Musculoskeletal Surgical History: Reports: Other (See Below) Other Musculoskeletal Surgeries/Procedures:: jaw surgery Oncologic Surgical History: Reports: None Dermatological Surgical History: Reports: Other (See Below) Social & Family History - Family History Family Medical History: No Pertinent Family History - Tobacco Use Second Hand Smoke Exposure: No - Caffeine Use Caffeine Use: Reports: Coffee, Soda Other Caffeine Use: 3-4 TIMES A WEEK - Alcohol Use Days Per Week of Alcohol Use: 3 Number of Drinks Per Day: 5 Total Drinks Per Week: 15 - Recreational Drug Use Recreational Drug Use: No - Living Situation & Occupation Living situation: Reports: with Family ED ROS GENERAL - Review of Systems Review Of Systems: Comprehensive ROS is negative, except as noted in HPI. ED EXAM, RENAL/ - Physical Exam Exam: See Below Exam Limited By: No Limitations General Appearance: Alert, Moderate Distress (Right flank pain) Eye Exam: Bilateral Eye: EOMI, Normal Inspection, PERRL (3mm) Ears: Normal External Exam Nose: Normal Inspection, Normal Mucosa, No Blood Throat/Mouth: Normal Lips, Normal Teeth, Normal Gums, Normal Voice, No Airway Compromise. No: Normal Oropharynx (Dry mucous membranes) Head: Atraumatic, Normocephalic Neck: Normal Inspection, Full Range of Motion Respiratory/Chest: No Respiratory Distress, Lungs Clear, Normal Breath Sounds, No Accessory Muscle Use, Chest Non-Tender. No: Crackles, Rales, Rhonchi, Wheezing, Stridor Cardiovascular: Normal Peripheral Pulses, Regular Rate, Rhythm, No Gallop, No Murmur, No Rub GI/Abdominal: Soft, No Distention, No Abnormal Bruit, No Mass, Pelvis Stable, Guarding, Tender (To RLQ, radiating from right flank), Abnormal Bowel Sounds (Hyperactive bowel sounds to right upper and lower quadrants). No: Rigid, Rebound (Female) Exam: Deferred Rectal (Female) Exam: Deferred Back Exam: Normal Inspection, Full Range of Motion, CVA Tenderness (R). No: CVA Tenderness (L) Extremities: Normal Inspection, Normal Range of Motion, Normal Capillary Refill Neurological: Alert, Oriented, CN II-XII Intact, Normal Cognition, Normal Gait, No Motor/Sensory Deficits Psychiatric: Normal Affect, Normal Mood Skin Exam: Warm, Dry, Intact, Normal Color, No Rash. No: Cyanosis, Jaundice, Mottled, Pallor Course - Vital Signs Last Recorded V/S: Last Vital Signs Temp 97.5 F 01/09/21 12:46 Pulse 80 01/09/21 12:46 Resp 20 01/09/21 12:46 BP 165/94 H 01/09/21 12:46 Pulse Ox 98 01/09/21 12:46 - Orders/Labs/Meds Orders: Active Orders 24 hr Category Date Time Status CULTURE URINE [RM] Stat Lab 01/09/21 12:32 Received Labs: Laboratory Tests 01/09/21 01/09/21 01/09/21 Range/Units 12:32 12:41 12:41 WBC 9.3 (5.0-10.0) 10^3/uL RBC 4.09 L (4.2-5.4) 10^6/uL Hgb 12.8 (12.0-16.0) g/dL Hct 39.0 (37.0-47.0) % MCV 95.4 (80-100) fL MCH 31.3 (27.0-34.0) pg MCHC 32.8 L (33.0-35.0) g/dL Plt Count 201 (150-450) 10^3/uL Neut % (Auto) 75.5 H (42.2-75.2) % Lymph % (Auto) 16.5 L (20.5-50.1) % [place] % (Auto) 6.7 (2-8) % Eos % (Auto) 0.9 L (1.0-3.0) % Baso % (Auto) 0.4 (0.0-1.0) % Sodium 134 L D (136-145) mmol/L Potassium 4.1 (3.5-5.1) mmol/L Chloride 100 (98-107) mmol/L Carbon Dioxide 25 (21-32) mmol/L Anion Gap 13.1 H (7-13) mEq/L BUN 20 H (7-18) mg/dL Creatinine 0.93 (0.55-1.02) mg/dL Est Cr Clr Drug Dosing 63.19 mL/min Estimated GFR (MDRD) > 60 BUN/Creatinine Ratio 21.5 (No establ ref range) Glucose 289 H (70-99) mg/dL POC Glucose (70-99) mg/dL Calcium 9.1 (8.5-10.1) mg/dL Total Bilirubin 0.3 (0.2-1.0) mg/dL AST 18 (15-37) U/L ALT 30 (14-59) U/L Alkaline Phosphatase 81 (46-116) U/L C-Reactive Protein < 0.2 (0.0-0.9) mg/dL Total Protein 7.4 (6.4-8.2) g/dL Albumin 3.9 (3.4-5.0) g/dL Globulin 3.5 Albumin/Globulin Ratio 1.1 Urine Color Yellow (YELLOW) Urine Appearance Cloudy (CLEAR) Urine pH 7.5 (5.0-9.0) Ur Specific [place] 1.025 (1.005-1.030) Urine Protein 30 H (NEGATIVE) Urine Glucose (UA) 250 H (NEGATIVE) Urine Ketones Trace H (NEGATIVE) Urine Occult Blood Moderate H (NEGATIVE) Urine Nitrite Negative (NEGATIVE) Urine Bilirubin Negative (NEGATIVE) Urine Urobilinogen 0.2 (0.2-1.0) mg/dL Ur Leukocyte Esterase Trace H (NEGATIVE) Urine RBC 50-75 H (0-5) /HPF Urine WBC 10-20 H (0-5/HPF) /HPF Ur Epithelial Cells Many H (NOT SEEN) /HPF Urine Bacteria Many H (0-FEW/HPF) /HPF Ketones 01/09/21 01/09/21 Range/Units 12:41 13:00 WBC (5.0-10.0) 10^3/uL RBC (4.2-5.4) 10^6/uL Hgb (12.0-16.0) g/dL Hct (37.0-47.0) % MCV (80-100) fL MCH (27.0-34.0) pg MCHC (33.0-35.0) g/dL Plt Count (150-450) 10^3/uL Neut % (Auto) (42.2-75.2) % Lymph % (Auto) (20.5-50.1) % [place] % (Auto) (2-8) % Eos % (Auto) (1.0-3.0) % Baso % (Auto) (0.0-1.0) % Sodium (136-145) mmol/L Potassium (3.5-5.1) mmol/L Chloride (98-107) mmol/L Carbon Dioxide (21-32) mmol/L Anion Gap (7-13) mEq/L BUN (7-18) mg/dL Creatinine (0.55-1.02) mg/dL Est Cr Clr Drug Dosing mL/min Estimated GFR (MDRD) BUN/Creatinine Ratio (No establ ref range) Glucose (70-99) mg/dL POC Glucose 250 H (70-99) mg/dL Calcium (8.5-10.1) mg/dL Total Bilirubin (0.2-1.0) mg/dL AST (15-37) U/L ALT (14-59) U/L Alkaline Phosphatase (46-116) U/L C-Reactive Protein (0.0-0.9) mg/dL Total Protein (6.4-8.2) g/dL Albumin (3.4-5.0) g/dL Globulin Albumin/Globulin Ratio Urine Color (YELLOW) Urine Appearance (CLEAR) Urine pH (5.0-9.0) Ur Specific [place] (1.005-1.030) Urine Protein (NEGATIVE) Urine Glucose (UA) (NEGATIVE) Urine Ketones (NEGATIVE) Urine Occult Blood (NEGATIVE) Urine Nitrite (NEGATIVE) Urine Bilirubin (NEGATIVE) Urine Urobilinogen (0.2-1.0) mg/dL Ur Leukocyte Esterase (NEGATIVE) Urine RBC (0-5) /HPF Urine WBC (0-5/HPF) /HPF Ur Epithelial Cells (NOT SEEN) /HPF Urine Bacteria (0-FEW/HPF) /HPF Ketones Negative Meds: Medications Discontinued Medications Generic Name Dose Route Start Last Admin Trade Name Freq PRN Reason Stop Dose Admin Hydromorphone HCl 1 mg 01/09/21 12:52 01/09/21 12:56 Hydromorphone 1 Mg/Ml Syringe IVPUSH 01/09/21 12:53 1 mg ONETIME ONE Administration Sodium Chloride 1,000 mls @ 999 mls/hr 01/09/21 13:01 01/09/21 13:02 Normal Saline IV 01/09/21 14:01 999 mls/hr .BOLUS ONE Administration Metoclopramide HCl 10 mg 01/09/21 14:59 01/09/21 15:03 Metoclopramide 10 Mg Tab PO 01/09/21 15:00 10 mg ONETIME ONE Administration Ondansetron HCl 4 mg 01/09/21 12:52 01/09/21 12:56 Ondansetron 4 Mg/2 Ml Sdv IVPUSH 01/09/21 12:53 4 mg ONETIME ONE Administration Tamsulosin HCl 0.4 mg 01/09/21 14:41 01/09/21 14:47 Tamsulosin 0.4 Mg Cap.Er PO 01/09/21 14:42 0.4 mg ONETIME ONE Administration - Radiology Interpretation Free Text/Narrative:: [facility] Final Radiology Report with Addendum Call: [phone] assistance Online chat: [email or web address] Name: LINH SCHERER Age: 50Years F Date: 01/09/2021 SSN: -- : [id number] Study: CT ABDOMEN PELVIS WO CONT Requesting Physician: Mirta Schwarz Images: [id number] Addl Studies: Provided Clinical History: r/o right renal stone; Right flank pain and colick Contrast: Without Contrast Medium: Contrast Amount: Contrast Method: Page 1 of 2 Addendum created by Ren Bains MD on 01/09/2021 2:35 PM Central Time ([place] & [place]): Addendum to correct left/right discrepancy: Kidneys and ureters: Moderate RIGHT hydronephrosis and hydroureter secondary to an obstructing 4 x 3 mm calculus in the distal ureter, just proximal to the UVJ. There are multiple left renal collecting system calcifications. There is no left hydronephrosis. IMPRESSION: Moderate RIGHT hydronephrosis and hydroureter secondary to an obstructing 4 x 3 mm calculus in the distal ureter, just proximal to the UVJ. Initial Report created on 01/09/2021 2:24 PM Central Time ([place] & [place]): PROCEDURE INFORMATION: Exam: CT Abdomen And Pelvis Without Contrast Exam date and time: 01/09/2021 1:36 PM Age: 50 years old Clinical indication: Abdominal pain; Additional info: R/O right renal stone; Right flank pain and colick TECHNIQUE: Imaging protocol: Computed tomography of the abdomen and pelvis without contrast. Radiation optimization: All CT scans at this facility use at least one of these dose optimization techniques: automated exposure control; mA and/or kV adjustment per patient size (includes targeted exams where dose is matched to clinical indication); or iterative reconstruction. COMPARISON: CT Abdomen Pelvis w Cont 11/04/2020 1:45 PM (images only; no report) FINDINGS: Lungs: Minimal bibasilar atelectasis versus scarring. Diaphragm: Small sliding hiatal hernia. [facility] | Final Radiology Report CONFIDENTIALITY STATEMENT This report is intended only for use by the referring physician, and only in accordance with law. If you received this in error, call [phone]. Page 2 of 2 Liver: There is a simple hepatic cyst. Otherwise unremarkable non-contrast appearance of the liver. Gallbladder and bile ducts: Unremarkable CT appearance of the gallbladder. There is no evidence of biliary ductal dilation. Pancreas: The pancreas is within normal limits. Spleen: The spleen is normal. Adrenal glands: The adrenal glands are normal. Kidneys and ureters: Moderate left hydronephrosis and hydroureter secondary to an obstructing 4 x 3 mm calculus in the distal ureter, just proximal to the UVJ. There are multiple left renal collecting system calcifications. There is no left hydronephrosis. Stomach and bowel: There is no evidence of bowel obstruction or intestinal perforation. Appendix: No evidence of appendicitis. Intraperitoneal space: No pneumoperitoneum. No abnormal free fluid or fluid collection. Vasculature: The aorta demonstrates mild atherosclerotic calcification. No aortic aneurysm. Lymph nodes: There is no evidence of lymphadenopathy. Urinary bladder: The urinary bladder is within normal limits. Reproductive: The uterus is unremarkable as visualized. No evidence of adnexal mass. Bones/joints: No acute fracture or dislocation. Soft tissues: There is a small fat-containing periumbilical hernia. IMPRESSION: Moderate left hydronephrosis and hydroureter secondary to an obstructing 4 x 3 mm calculus in the distal ureter, just proximal to the UVJ. Thank you for allowing us to participate in the care of your patient. Dictated and Authenticated by: Ren Bains MD 01/09/2021 2:24 PM Central Time ([place] & [place]) - Re-Assessments/Exams Free Text/Narrative Re-Assessment/Exam: 01/09/21 UA and lab work sent. Will obtain CT abdomen/pelvis w/o to r/o renal calculus. NS 1L bolus initiated. Zofran 4mg IVP and Dilaudid 1mg IVP administered. CT revealed right uretal stone with moderate hydronephrosis. Findings of examination, lab work, and imaging reviewed with patient. Will treat acute pain with ketorolac and Percocet. Flomax and Zofran ODT prescribed. Supportive cares discussed. Patient instructed to follow up with primary care provider regarding todays visit. Red flag signs and symptoms which would warrant immediate reevaluation reviewed. Patient verbalized understanding and agreement with the plan of care. Departure - Departure Time of Disposition: 14:47 Disposition: Home, Self-Care 01 Condition: Good Clinical Impression: Right ureteral calculus, Hydronephrosis of right kidney Hyperglycemia due to type 2 diabetes mellitus Qualifiers: Diabetes mellitus fci insulin use: without intermediate project manager use Qualified Code(s): E11.65 - Type 2 diabetes mellitus with hyperglycemia - Discharge Information *PRESCRIPTION DRUG MONITORING PROGRAM REVIEWED*: Not Applicable *COPY OF PRESCRIPTION DRUG MONITORING REPORT IN PATIENT ZAFAR: Not Applicable Instructions: Kidney Stones, [id number], Hydronephrosis Forms: ED Department Discharge Additional Instructions: Rx: Flomax 0.4mg (#7) Rx: Zofran ODT 4mg (#20) Rx: ketorolac 10mg (#20) Rx: Percocet 5/325mg (#8) 1.) Drink small frequent sips of water to stay hydrated and keep kidneys and bladder flushed out. No not hold your urine for extended lengths of time. 2.) Continue with your previously prescribe insulin and Metformin; continue monitoring your blood sugars as previously prescribed. 3.) Return to the emergency department with any fever, inability to void, or persistent/worsening symptoms despite medications. 4.) Follow up with your primary care provider in 5-7 days. Sepsis Event Note (ED) - Evaluation Sepsis Screening Result: No Definite Risk - My Orders Last 24 Hours: My Active Orders 01/09/21 12:32 CULTURE URINE [RM] Stat - Assessment/Plan Last 24 Hours: My Active Orders 01/09/21 12:32 CULTURE URINE [RM] Stat"
[2021-01-09] MEDS ORDERED: Metoclopramide 10 MG Tab PO ONE (14:59)
== END 2021-01-09 15:05 | disposition home or self-care (01) ==
LOC: DL.ED 12:27
DX: N13.2 Hydronephrosis with renal and ureteral calculous obstruction (principal); E11.65 Type 2 diabetes mellitus with hyperglycemia; E78.00 Pure hypercholesterolemia, unspecified; I10 Essential (primary) hypertension; Z79.4 Long term (current) use of insulin; Z79.899 Other long term (current) drug therapy; Z86.16 Personal history of COVID-19
CPT/HCPCS: 36415; 74176; 80053; 81001; 82009; 82947; 85025; 86140; 87086; 96374; 96375; 99284; A9270; J1170; J2405; J7030

== ENCOUNTER 2022-01-10 12:14 | Emergency (ER) | payer BC, MEDICAID ==
[2022-01-10] MEDS ORDERED: Sodium Chloride 0.9% 1,000 ML IV ONE (13:38)
[2022-01-10] MEDS ORDERED: Sodium Chloride 0.9% 10 ML Syringe FLUSH PRN (13:38)
[2022-01-10] MEDS ORDERED: Iopamidol 612 MG/ML 100 ML Bottle IVPUSH ONE (13:39)
[2022-01-10 14:15] LABS: ANION GAP 12.5 mEq/L (7-13); CHLORIDE,CL 105 mmol/L (98-107); SODIUM,NA 140 mmol/L (136-145)
[2022-01-10 14:21] LABS: ESTIMATED GFR 80 mL/min (>=60)
== END 2022-01-10 15:19 | disposition home or self-care (01) ==
LOC: DL.ED 12:14
DX: B37.41 Candidal cystitis and urethritis (principal); E78.00 Pure hypercholesterolemia, unspecified; I10 Essential (primary) hypertension; E11.9 Type 2 diabetes mellitus without complications; Z79.4 Long term (current) use of insulin; Z79.899 Other long term (current) drug therapy; Z86.16 Personal history of COVID-19
CPT/HCPCS: 36415; 74177; 80053; 81001; 83605; 85025; 86140; 96360; 99284; J3490; J7030; Q9967

== ENCOUNTER 2022-10-03 07:37 | Emergency (ER) | payer BC | END 2022-10-03 08:32 | disposition left against medical advice (07) | LOC: DL.ED 07:37 | DX: Z53.21 Procedure and treatment not carried out due to patient leaving prior to being seen by health care provider (principal) ==